=== PATIENT | male | born 1945 | race Caucasian/White ===

== ENCOUNTER 2024-04-18 06:18 | Day surgery (SDC) | payer MEDICARE, BC, SELFPAY ==
[2024-04-18 11:48] VITALS: BMI 28.9
[2024-04-18 11:49] VITALS: BP 163/92
[2024-04-18 14:00] VITALS: BP 122/64
== END 2024-04-18 14:35 | disposition home or self-care (01) ==
LOC: GI 06:18
PROVIDERS: ATTENDING PHYSICIAN Internal Medicine Gastroenterology
DX: B37.81 Candidal esophagitis (principal); K22.9 Disease of esophagus, unspecified; K31.A0 Gastric intestinal metaplasia, unspecified; K31.89 Other diseases of stomach and duodenum
CPT/HCPCS: 43239; 88305; 87220; 88342

== ENCOUNTER → 2024-12-04 12:05 | Outpatient (REF) | payer MEDICARE, BC, SELFPAY | LOC: RAD 12:05 | PROVIDERS: ATTENDING PHYSICIAN Internal Medicine Gastroenterology; FAMILY PHYSICIAN Family Medicine | DX: K59.09 Other constipation (principal) | CPT/HCPCS: 74018 ==

== ENCOUNTER → 2024-12-18 11:23 | Outpatient (REF) | payer MEDICARE, BC, SELFPAY | LOC: HWRAD 11:23 | PROVIDERS: ATTENDING PHYSICIAN Internal Medicine Gastroenterology; FAMILY PHYSICIAN Family Medicine | DX: K21.9 Gastro-esophageal reflux disease without esophagitis (principal); R14.2 Eructation | CPT/HCPCS: 76700 ==

== ENCOUNTER → 2025-01-07 09:44 | Outpatient (REF) | payer MEDICARE, BC, SELFPAY | LOC: RAD 09:44 | PROVIDERS: ATTENDING PHYSICIAN Internal Medicine Gastroenterology; FAMILY PHYSICIAN Family Medicine | DX: R14.2 Eructation (principal) | CPT/HCPCS: 78264; A9541 ==

== ENCOUNTER 2025-02-28 17:33 | Emergency (ER) | payer MEDICARE, BC, SELFPAY ==
[2025-02-28 17:34] VITALS: BMI 28.9
[2025-02-28 17:45] VITALS: BP 150/117
[2025-02-28 18:26] LABS: % Basophils 0.6 % (0-2); % Eosinophils 0.8 % (0-6); % Immature Granulocytes 0.8 % (0-0.5); % Lymphocytes 12.5 % (20.5-51.1); % Monocytes 9.9 % (1.7-9.3); % Neutrophils 75.4 % (42.2-75.2); Absolute Basophils 0.1 10^3/uL (0-0.2); Absolute Eosinophils 0.1 10^3/uL (0-0.7); Absolute Immature Granulocytes 0.1 10^3/uL (0-0.05); Absolute Lymphocytes 1.9 10^3/uL (1.2-3.4); Absolute Monocytes 1.5 10^3/uL (0.1-0.6); Absolute Neutrophils 11.7 10^3/uL (1.4-6.5); Hemoglobin 16.3 g/dL (13.0-18.0); Mean Corpuscular Hgb 27.8 pg (27.0-31.0); Mean Corpuscular Volume 81.8 fL (80.0-94.0); Mean Platelet Volume 9.7 fL (7.4-10.4); Nucleated Red Blood Cells % 0 % (-); Platelet Count 236 10^3/uL (130-400); Red Blood Cell Count 5.87 10^6/uL (4.70-6.10); Red Cell Dist. Width 20.5 % (11.5-14.5); White Blood Cell Count 15.6 10^3/uL (4.8-10.8)
[2025-02-28 18:29] LABS: ALT (SGPT) 23 U/L (0-50); AST (SGOT) 22 U/L (17-59); Albumin 4.2 g/dl (3.5-5.0); Alkaline Phosphatase 53 U/L (38-126); Blood Urea Nitrogen 19 mg/dl (9-20); Calcium 9.5 mg/dl (8.4-10.2); Carbon Dioxide 26 mmol/L (22-30); Chloride 104 mmol/L (98-107); Glucose 105 mg/dl (70-99); Potassium 4.9 mmol/L (3.5-5.1); Sodium 139 mmol/L (135-145); Total Bilirubin 0.5 mg/dl (0.2-1.3); Total Protein 6.2 g/dl (6.3-8.2); eGFR > 60.00
[2025-02-28 18:39] LABS: Urine Albumin 1+ (Neg - Trace); Urine Bilirubin Negative (Negative); Urine Character Clear (Clear); Urine Color Yellow; Urine Glucose Negative (Negative); Urine Ketone Negative (Negative); Urine Leukocyte Negative (Negative); Urine Nitrite Negative (Negative); Urine Occult Blood 4+ (Negative); Urine Urobilinogen Negative (Neg - 1+)
[2025-02-28 18:47] LABS: Urine Squamous Cell 0-2 /LPF (Few)
[2025-02-28 18:48] LABS: Urine Bacteria Few (Negative); Urine Red Blood Cell 26-30 /HPF (0-2); Urine White Cell 0-2 /HPF (0-5)
[2025-02-28 21:01] VITALS: BP 175/93
--- NOTE | 2025-02-28 21:12 | ED.GENMED ---
History of Present Illness
General
Chief Complaint: Male Genito-Urinary Symptoms
Source: patient
Exam Limitations: none
Time Seen by Provider: 02/28/25 20:42
History of Present Illness
History of Present Illness:
79yoM with a history of coronary artery disease s/p CABG, hypertension, hyperlipidemia presenting with his for evaluation of hematuria. Patient had 2 episodes of gross hematuria this afternoon. The urine was a reddish color during the first
episode. In the second episode, the urine initially was pink and then became red. He passed a clot at the end of his stream and the urine has been clear since then. He was seen in urgent care prior to arrival and UA was normal other than elevated
RBCs. He was sent here for evaluation. Patient is currently asymptomatic and denies any fevers, vomiting, flank pain, abdominal pain, dysuria, urinary retention. He had an abdominal ultrasound in December 2024 which did not reveal any renal
masses. His only blood thinner is a baby aspirin. He denies tobacco use.
Past History
Past History
ED Past Medical History: CAD, GERD and Other (Pharyngolaryngeal reflux)
ED Past Surgical History: Appendectomy, Cardiac (TCA with stent), Orthopedic (Lumbar laminectomy/fusion; carpal tunnel release right hand, knee arthroscopy) and Other (Sinus surgery)
Social History
Tobacco: Non-smoker
Personal:
Living: with family
Employment: Retired
Family History
Family History: Other (Noncontributory)
Phy Exam
General Physical Exam
General Presentation: well appearing and no apparent distress
General Skin: warm and dry
General Habitus: normal
General Mental: alert
ENT Exam
ENT Exam: normocephalic
Pulmonary Exam
Pulmonary Exam: no respiratory distress
Gastrointestinal Exam
Gastrointestinal Exam: non tender, soft and non distended
Neurological Exam
Neurological Exam: alert
[place] Coma Scale
Eye Opening: Spontaneous
Verbal Response: Oriented
Motor Response: Obeys Commands
GCS Total Score: 15
Skin Exam
Skin Exam: normal color and warm/dry
Psychiatric Exam
Psychiatric Exam: normal mood/affect
Course
Orders/Labs/Results
Orders:
Orders
02/28/25 18:00
CMP [Comprehensive Metabolic Panel] Urgent
Complete Blood Count/With Diff Urgent
02/28/25 18:02
Urinalysis Reflex To Culture Urgent
Date Specimen was Collected: 02/28/25
Time Specimen was Collected: 17:49
Urine Microscopic Reflex Cult Urgent
Abnormal Lab Results
02/28/25 02/28/25
18:00 18:02
WBC 15.6 H 10^3/uL
(4.8-10.8)
RDW 20.5 H %
(11.5-14.5)
Abs Immat Gran (auto) 0.1 H 10^3/uL
(0-0.05)
Absolute Neuts (auto) 11.7 H 10^3/uL
(1.4-6.5)
Absolute Monos (auto) 1.5 H 10^3/uL
(0.1-0.6)
Immature Gran % 0.8 H %
(0-0.5)
Neutrophils % 75.4 H %
(42.2-75.2)
Lymphocytes % 12.5 L %
(20.5-51.1)
Monocytes % 9.9 H %
(1.7-9.3)
Glucose 105 H mg/dl
(70-99)
Total Protein 6.2 L g/dl
(6.3-8.2)
Ur Occult Blood Reflex 4+ A
(Negative)
Urine RBC 26-30 A /HPF
(0-2)
Urine Bacteria (Reflex) Few A
(Negative)
Urine Albumin (Reflex) 1+ A
(Neg - Trace)
02/28/25 18:00
02/28/25 18:00
Vital Signs
Initial and Last Documented VS:
Initial Vital Signs
Temp Pulse Resp BP Pulse Ox
98.0 F 84 16 150/117 96
02/28/25 17:45 02/28/25 17:45 02/28/25 17:45 02/28/25 17:45 02/28/25 17:45
Last Documented Vital Signs
Temp Pulse Resp BP Pulse Ox
98.0 F 78 16 175/93 98
02/28/25 17:45 02/28/25 21:01 02/28/25 21:01 02/28/25 21:01 02/28/25 21:01
MDM/Problems Addressed
Differential Diagnosis Includes:
79yoM here after 2 episodes of gross hematuria today. Urine now appears clear/yellow. Otherwise asymptomatic. He is hypertensive with otherwise stable vitals. He is well appearing in no distress. Abdominal exam is benign. Differential diagnosis
includes: UTI, BPH, malignancy
UA obtained in triage which shows microscopic hematuria without evidence of infection. Recent abdominal ultrasound 2 months ago was normal. Offered repeat imaging which he declines and states he prefers to f/u with urology as an outpatient.
Discussed likely need for cystoscopy to r/o bladder mass. ED return precautions discussed. Patient and in agreement with plan and he was discharged in stable condition.
*Critical Care Note
Total Time (30-74mins, 75-104mins- exclusive of procedures): Not Applicable
ED Attending Note
-
Portions of this chart may have been created with voice recognition software.� Occasional wrong word or��sound alike� substitutions may have occurred due to the inherent limitations of voice recognition software.
Discharge Plan
Departure
Patient Disposition: Home (Routine Discharge)
Date of Disposition: 02/28/25
Time of Disposition: 21:15
Patient with high blood pressure during this ER visit?: Yes
Discharge Problem:
Hematuria
Instructions: Blood in the urine (hematuria) - ED discharge instructions
Prescriptions:
No Action
Aspirin
81 mg PO DAILY
Amlodipine
5 mg PO DAILY
Coq10
300 mg PO DAILY
Patient Comments:
Coq10 100mg at HS
Gabapentin
200 mg PO HS
Magnesium
64 mg PO DAILY
Rosuvastatin Calcium
20 mg PO DAILY
Tramadol Hcl
50 mg PO HS
Vitamin C
1,000 mg PO DAILY
losartan 50 MG tablet
50 mg PO DAILY Qty: 30 0RF
Rx Instructions:
NEW MED
famotidine 20 MG tablet
20 mg PO HS Qty: 30 0RF
montelukast 10 MG tablet
10 mg PO QPM Qty: 30 0RF
Rx Instructions:
NEW MED
budesonide-formoterol [Symbicort] 1 PUFF HFA aerosol inhaler
2 puff inhalation R BID Qty: 1 0RF
Rx Instructions:
NEW MED
Nexium
40 mg PO DAILY Qty: 30 0RF
Rx Instructions:
take 1/2 hour before breakfast
Saline Nasal 50 SPRAYS/45 ML aerosol,spray
0 sprays intranasal BID
Dupixent Pen 300 mg/2 mL Pen Injector
300 mg SC Q2W
Referrals:
Angel Mcghee MD [Active] -
Yash Philippe MD [Family Provider] -
Activity Restrictions/Additional Instructions:
Please call tomorrow to schedule a follow-up appointment with urology. Return to the ER with any new or worsening symptoms including inability to urinate or pain.
Interventions
Interventions:
*Risk Screen - Suicide Last Done: 02/28/25 17:45
*General Assessment Last Done: 02/28/25 20:50
*Neglect/Abuse Screening Last Done: 02/28/25 17:45
*ED- Fall Risk Assessment Last Done: 02/28/25 20:50
*Nursing Disposition Last Done: 02/28/25 21:19
ED-Male Genitourinary Assessment Last Done: 02/28/25 20:50
Discharge Date and Time
Discharge Date/Time: 02/28/25 21:20
Print Language: WELSH
== END 2025-02-28 21:20 | disposition home or self-care (01) ==
LOC: EMR 17:33
PROVIDERS: Emergency Medicine; EMERGENCY PHYSICIAN Emergency Medicine; FAMILY PHYSICIAN Family Medicine
DX: R31.9 Hematuria, unspecified (principal); I10 Essential (primary) hypertension; E78.00 Pure hypercholesterolemia, unspecified; I25.10 Atherosclerotic heart disease of native coronary artery without angina pectoris; K21.9 Gastro-esophageal reflux disease without esophagitis; Z90.49 Acquired absence of other specified parts of digestive tract; Z95.1 Presence of aortocoronary bypass graft; Z95.5 Presence of coronary angioplasty implant and graft
CPT/HCPCS: 99283; 80053; 81003; 81015; 85025

== ENCOUNTER → 2025-03-08 11:04 | Outpatient (REF) | payer MEDICARE, BC, SELFPAY | LOC: RAD 11:04 | PROVIDERS: ATTENDING PHYSICIAN Family Medicine | DX: R31.0 Gross hematuria (principal) | CPT/HCPCS: 74178; Q9967 ==

== ENCOUNTER 2025-08-02 22:08 | Inpatient (IN) | payer MEDICARE, BC, SELFPAY ==
[2025-08-02 17:24] LABS: AST (SGOT) 19 U/L (17-59); Albumin 3.8 g/dl (3.5-5.0); Alkaline Phosphatase 47 U/L (38-126); Blood Urea Nitrogen 18 mg/dl (9-20); Calcium 8.9 mg/dl (8.4-10.2); Carbon Dioxide 22 mmol/L (22-30); Chloride 100 mmol/L (98-107); Glucose 134 mg/dl (70-99); Potassium 5.1 mmol/L (3.5-5.1); Sodium 131 mmol/L (135-145); Total Protein 5.9 g/dl (6.3-8.2); eGFR > 60.00
[2025-08-02 17:33] LABS: ALT (SGPT) 21 U/L (0-50); Troponin I 0.049 ng/ml
--- NOTE | 2025-08-02 17:34 | ED.GENMED ---
History of Present Illness
General
Chief Complaint: Weakness
Source: patient
Exam Limitations: none
Time Seen by Provider: 08/02/25 17:33
Nursing documentation reviewed up to this point in time: agreed with
History of Present Illness
History of Present Illness:
The patient is a pleasant 80-year-old man who reports 1 to 2 days of severe generalized weakness and left lower leg skin redness. Patient denies fevers and chills. He reports he feels so weak that he had difficulty standing up and walking today.
He denies chest pain and shortness of breath. Patient denies injury to the left leg.
Past History
Past History
ED Past Medical History: CAD, GERD and Other (Pharyngolaryngeal reflux)
ED Past Surgical History: Appendectomy, Cardiac (TCA with stent), Orthopedic (Lumbar laminectomy/fusion; carpal tunnel release right hand, knee arthroscopy) and Other (Sinus surgery)
Social History
Tobacco: Non-smoker
Alcohol: Other
Drug: None
Personal:
Living: with family
Employment: Retired
Family History
Family History: Other (Noncontributory)
Review of Systems
Review of Systems
Allergies reviewed?: Yes
Other source history: family
All Other Systems: ROS reviewed and negative except as documented in HPI and ROS
Constitutional: Reports fatigue
EENT: Reports no symptoms
Respiratory: Reports no symptoms
Cardiac: Reports no symptoms
ABD/GI: Reports no symptoms
: Reports no symptoms
Musculoskeletal: Reports edema (Edema and skin redness of left lower leg)
Skin: Reports other
Neurological: Reports no symptoms
Endocrine: Reports no symptoms
Hematologic/Lymphatic: Reports no symptoms
Psychiatric: Reports no symptoms
Phy Exam
Physical Exam
Physical Exam:
Physical Exam
General: Patient appears tired but is alert and conversational
Neck: supple. no meningeal signs. Dry mucous membrane
Heart: s1/s2 regular rate and rhythm,
Lungs: no acute respiratory distress. clear bilaterally
Abdomen: normal bowel sounds. not tender. no CVAT
Neuro: alert and oriented. no focal neurological deficits
Skin: Warmth and skin erythema of left lower leg
Psychiatric: well kept. interactive and cooperative
Extremities: 1+ pitting edema in bilateral lower extremities. Negative Homans' sign
Course
Orders/Labs/Results
Orders:
Orders
08/02/25 16:38
Electrocardiogram (*1) Urgent
Reason for Study: Fatigue / Weakness
EKG- Treatment ONCE
08/02/25 16:51
Complete Blood Count/With Diff Urgent
Comprehensive Metabolic Panel Urgent
NT-proBNP Urgent
Comment: ADD ON
Troponin I Urgent
08/02/25 17:34
Urinalysis Reflex To Culture Urgent
08/02/25 18:14
CR Chest - 2 Views Urgent
Comment:
Reason For Exam: weakness
08/02/25 18:26
Add On- LAB Urgent
Tests Added?: Pro-BNP
08/02/25 18:27
Add On- LAB Urgent
Tests Added?: lymes progressive
08/02/25 18:28
US Legs, Left [US Periph Venous LOWER Ext LT] Urgent
Comment:
Reason For Exam: left leg redness
08/02/25 18:39
COVID-19 Antigen Urgent
Source: Nasal Swab
Lactic Acid Urgent
WBC with Differential Urgent
Blood Culture Q30M
ZORA Source: Blood/Venous
Specimen Description:
Blood Culture Q30M
ZORA Source: Blood/Venous
Specimen Description:
08/02/25 19:34
Piperacillin/Tazo 4.5 Gram [Zosyn] 4.5 gram in 100 ml IV NOW
Vancomycin [Vancocin] 2,000 mg 0.9% Sodium Chloride 500 ml [Nss] 500 ml IV NOW
08/02/25 20:19
Lyme Progressive Urgent
Abnormal Lab Results
08/02/25 08/02/25
16:51 18:39
WBC 40.8 H* 10^3/uL 39.5 H 10^3/uL
(4.8-10.8) (4.8-10.8)
Abs Immat Gran (auto) 0.6 H 10^3/uL 0.5 H 10^3/uL
(0-0.05) (0-0.05)
Absolute Neuts (auto) 37.0 H 10^3/uL 35.2 H 10^3/uL
(1.4-6.5) (1.4-6.5)
Absolute Lymphs (auto) 1.0 L 10^3/uL 1.1 L 10^3/uL
(1.2-3.4) (1.2-3.4)
Absolute Monos (auto) 2.1 H 10^3/uL 2.6 H 10^3/uL
(0.1-0.6) (0.1-0.6)
Immature Gran % 1.4 H % 1.3 H %
(0-0.5) (0-0.5)
Neutrophils % 90.7 H % 89.0 H %
(42.2-75.2) (42.2-75.2)
Lymphocytes % 2.4 L % 2.8 L %
(20.5-51.1) (20.5-51.1)
Sodium 131 L mmol/L
(135-145)
Glucose 134 H mg/dl
(70-99)
Lactic Acid 2.3 H mmol/L
(0.7-2.0)
Troponin I 0.049 H* ng/ml
Total Protein 5.9 L g/dl
(6.3-8.2)
08/02/25 18:39
08/02/25 16:51
Vital Signs
Initial and Last Documented VS:
Initial Vital Signs
Temp Pulse Resp Pulse Ox
98.0 F 45 16 98
08/02/25 16:32 08/02/25 16:32 08/02/25 16:32 08/02/25 16:32
Last Documented Vital Signs
Temp Pulse Resp BP Pulse Ox
98.0 F 75 16 111/67 97
08/02/25 16:32 08/02/25 20:25 08/02/25 16:32 08/02/25 18:54 08/02/25 18:54
MDM/Problems Addressed
Differential Diagnosis Includes:
Acute pneumonia, acute UTI, left lower leg cellulitis
MDM/Problems Addressed:
Patient presents with acute generalized weakness and skin redness of left lower leg
Chronic conditions affecting care: CAD
*Radiology
Radiology exam reviewed: preliminary read by ED provider (Chest x-ray read by me. No acute disease) and radiology read reviewed
*Pulse Oximetry
SaO2: 98
Oxygen Mode of Delivery: Room air
Patient hypoxic: no
Comment: Not hypoxic, 98% on room air
*EKG
Interpreted by ED Provider?: Yes
Interpretation: abnormal
Comparison EKG: changes noted
Rate: normal
Rhythm: sinus and PVC's
[place]: left axis deviation
Interval: normal interval
QRS Pattern: normal QRS
Ischemia: non-specific ST changes
*[employer] Interpretation
Rate: normal
Interpretation: normal
Rhythm: sinus
*Critical Care Note
Total Time (30-74mins, 75-104mins- exclusive of procedures): Not Applicable
Data Reviewed
Review of Other/Old Records Reveals: Labs (White blood cell count 15.6 in 2024)
Source: patient and family
Patient Management
Social determinants of health affecting care: Living situation and Strong social support
Discussion with other providers: Hospitalist
ED Attending Note
-
Portions of this chart may have been created with voice recognition software.� Occasional wrong word or��sound alike� substitutions may have occurred due to the inherent limitations of voice recognition software.
Discharge Plan
Departure
Patient Disposition: Admit
Date of Disposition: 08/02/25
Time of Disposition: 19:33
Admit to: Med/Surg
Presentation/result/management discussed w/ accepting MD/DO: Hospitalist
Patient with high blood pressure during this ER visit?: No
Condition: Good
Covid-19: Not Applicable
Discharge Problem:
Cellulitis of left leg, Acute leukocytosis
Prescriptions:
No Action
furosemide [Lasix] 40 mg Tablet
40 mg PO DAILY
aspirin 81 mg Tablet,Delayed Release (Dr/Ec)
81 mg PO HS
tramadol 50 mg Tablet
50 mg PO HS
famotidine [Pepcid] 20 mg Tablet
20 mg PO HS
ascorbic acid (vitamin C) [Vitamin C] 500 mg Tablet
500 mg PO DAILY@1200
prednisone 1 mg Tablet
4 mg PO DAILY
esomeprazole magnesium [Nexium] 40 mg Capsule,Delayed Release(Dr/Ec)
40 mg PO DAILY
montelukast [Singulair] 10 mg Tablet
10 mg PO DAILY
furosemide [Lasix] 20 mg Tablet
20 mg PO QPM
gabapentin 100 mg Capsule
200 mg PO HS
losartan 100 mg Tablet
100 mg PO DAILY
finasteride 5 mg Tablet
5 mg PO DAILY
rosuvastatin [Crestor] 20 mg Tablet
20 mg PO DAILY
budesonide-formoterol [Breyna] 160-4.5 mcg/actuation Hfa Aerosol Inhaler
2 inh INHALATION R BID
omega 1-wpt-vwr-fish oil [Fish Oil] 1,000 (120-180) mg Capsule
1 cap PO DAILY@1200
coQ10 (ubiquinol) 100 mg Capsule
100 mg PO DAILY@1200
Dupixent Syringe 300 mg/2 mL Syringe
300 mg SC Q2W
magnesium oxide 200 mg magnesium Tablet
200 mg PO DAILY
Referrals:
Yash Philippe MD [Family Provider, Family Practice]
Interventions
Interventions:
*Risk Screen - Suicide Last Done: 08/02/25 16:32
*Neglect/Abuse Screening Last Done: 08/02/25 16:32
ED- Cardiac Assessment Last Done: 08/02/25 18:45
ED- Neurological Assessment Last Done: 08/02/25 20:25
ED- Pulmonary Assessment Last Done: 08/02/25 18:45
Discharge Date and Time
Print Language: SYRIAC
[2025-08-02 17:41] LABS: Hematocrit 46.4 % (39.0-52.0); Hemoglobin 15.7 g/dL (13.0-18.0); Mean Corp Hgb Conc. 33.8 g/dL (33.0-37.0); Mean Corpuscular Volume 87.7 fL (80.0-94.0); Platelet Count 334 10^3/uL (130-400); Red Cell Dist. Width 14.3 % (11.5-14.5)
[2025-08-02 18:09] LABS: Nucleated Red Blood Cells % 0 % (-)
[2025-08-02 18:54] VITALS: BP 111/67
[2025-08-02 19:35] LABS: COVID-19 Antigen Negative (Negative)
[2025-08-02] MEDS: ZOSYN 100 IV (20:18)
[2025-08-02 20:25] VITALS: BMI 30.1
--- NOTE | 2025-08-02 20:31 | HPS.HSE ---
Family Physician
-
Family Physician: Yash Philippe
Chief Complaint
-
weakness
History of Present Illness
This is a 80-year-old with past medical history significant for hypertension, asthma, sleep apnea, GERD, PMR, CHF with preserved EF, BPH presenting to the emergency department with worsening weakness fatigue over the last 3 days.
Patient apparently had a history of chronic lower extremity swelling on chronic diuretics as well as mechanical compression devices will recently had increased swelling and weeping on his lower extremities. After extensive swelling and weeping he
developed redness and he was started on increased dose of Lasix from 40 mg daily to 80 mg. Patient took 80 mg for about 3 days and had significant increase in weight loss down about 8 pounds with decrease in the swelling. The weeping is resolved.
Daughter reports that his swelling is under at times better than prior. However starting about 4 days ago started having increasing fatigue and weakness. Reported chills but denies any fevers. He denies any pain in his lower extremities. Denies
tenderness. He was brought to the emergency department today because he was slightly altered with increased somnolence and weakness. Decreased p.o. intake. Denied any urinary symptoms. Denies having any chest pain.
He was seen by his [place] physician today who was concerned as patient was noted to be bradycardic and hypotensive there. He had a temp of 97. Did not noticed left dependent edema with tense bullae and concerning for left leg cellulitis. It did
give him a prescription for Keflex and he was sent to the emergency department. He was advised to hold his diuretics as well as his losartan. Patient is not on a beta-blockade.
In the emergency department his temperature was 98 �C, blood pressure 116/60 with a pulse of 75 and was satting 97% on room air. ECG shows normal sinus rhythm with PVCs. Initial troponin was 0.049. Chest x-ray shows no acute infiltrates.
Ultrasound is negative for DVT.
He has a white count of 39.5 hemoglobin 15.7 platelet count of 334. His sodium was 131 otherwise potassium 5.1 BUN/creatinine were stable at 18 and 1.2 with a glucose of 134. Lactic acid was elevated at 2.3. BNP was also elevated 2900.
Medical History
Past Medical History
Past Medical History: Reports Asthma, CHF (Preserved EF), GERD, HTN, Hypercholesterolemia and Other (Sleep apnea, PMR, BPH)
Past Surgical History: Reports Orthopedic (Laminectomy, status post cardiac cath, spinal fusion L4-L5)
Social History
Tobacco: Non-smoker
Alcohol: None
Drug: None
Family History
Family History: Not pertinent
Allergies / Home Medications
Allergies reflects when Allergies were last updated in [facility].
Home Medications with original date entered in [facility]
Allergy/Medication List:
Allergies
Allergy/AdvReac Type Severity Reaction Status Date / Time
moxifloxacin Allergy Unknown Verified 08/02/25 16:38
oxycodone (From Percocet) AdvReac Unknown Verified 08/02/25 16:38
Home Medications
ascorbic acid (vitamin C) 500 mg tablet (Vitamin C) 500 mg PO DAILY@1200 08/02/25
aspirin 81 mg tablet,delayed release 81 mg PO HS 08/02/25
budesonide-formoterol HFA 160 mcg-4.5 mcg/actuation aerosol inhaler (Breyna) 2 inh inhalation R BID 08/02/25
coQ10 (ubiquinol) 100 mg capsule 100 mg PO DAILY@1200 08/02/25
dupilumab 300 mg/2 mL subcutaneous syringe (Dupixent) 300 mg SC Q2W 08/02/25
esomeprazole magnesium 40 mg capsule,delayed release (Nexium) 40 mg PO DAILY 08/02/25
famotidine 20 mg tablet (Pepcid) 20 mg PO HS 08/02/25
finasteride 5 mg tablet 5 mg PO DAILY 08/02/25
furosemide 20 mg tablet (Lasix) 20 mg PO QPM 08/02/25
furosemide 40 mg tablet (Lasix) 40 mg PO DAILY 08/02/25
gabapentin 100 mg capsule 200 mg PO HS 08/02/25
losartan 100 mg tablet 100 mg PO DAILY 08/02/25
magnesium oxide 200 mg PO DAILY 08/02/25
montelukast 10 mg tablet (Singulair) 10 mg PO DAILY 08/02/25
omega 9-yok-mll-fish oil 1,000 mg (120 mg-180 mg) capsule (Fish Oil) 1 cap PO DAILY@1200 08/02/25
prednisone 1 mg tablet 4 mg PO DAILY 08/02/25
rosuvastatin 20 mg tablet (Crestor) 20 mg PO DAILY 08/02/25
tramadol 50 mg tablet 50 mg PO HS 08/02/25
Review of Systems
-
History Source: Patient and Family
Constitutional: Reports Fatigue
EENT: Reports No Symptoms
Respiratory: Reports No Symptoms
Cardiac: Reports No Symptoms
Abdomen/GI: Reports No Symptoms
: Reports No Symptoms
Musculoskeletal: Reports Joint Swelling and Edema
Skin: Reports Rash
Neurological: Reports No Symptoms
Endocrine: Reports No Symptoms
Hematologic/Lymphatic: Reports No Symptoms
Psych: Reports No Symptoms
Physical Exam
Vital Signs
Vital Signs
Temp Pulse Resp BP Pulse Ox
98.0 F 75 16 111/67 97
08/02/25 16:32 08/02/25 20:25 08/02/25 16:32 08/02/25 18:54 08/02/25 18:54
Physical Exam
General: Well Developed, Well Nourished and No Apparent Distress
HEENT: NormoCephalic, Moist mucous membranes and Atraumatic
Respiratory: Clear
Cardiac: S1/S2 and Regular Rhythm; No Murmur or Rub
GI: Soft, Non Tender, Non Distended and Normal Bowel Sounds; No Organomegaly
Rectal: Deferred by Provider
Musculoskeletal: No Clubbing, No Cyanosis, Edema, Left Lower Extremity (Trace to 1+) and No Edema; No Edema, Right Upper Extremity
Skin: Rash (Left lower extremity erythema from the knee to the ankle. There is some minimal induration and no tenderness to palpation. No obvious fluid collection.)
Neuro: AO x 3 and Nonfocal/grossly intact
Laboratory Results
-
08/02/25 18:39
08/02/25 16:51
Laboratory Results
Lactic Acid 2.3 mmol/L (0.7-2.0) H 08/02/25 18:39
Total Bilirubin 1.2 mg/dl (0.2-1.3) 08/02/25 16:51
AST 19 U/L (17-59) 08/02/25 16:51
ALT 21 U/L (0-50) 08/02/25 16:51
Alkaline Phosphatase 47 U/L (38-126) 08/02/25 16:51
Troponin I 0.049 ng/ml H* 08/02/25 16:51
Data Reviewed
-
Ultrasound: Report Reviewed by me
Lab Data: Labs Reviewed by me
Old Records: Reviewed
Impression/Plan
-
IMPRESSION:
80-year-old with multiple comorbidities presenting with weakness fatigue and erythema to the left lower extremity. Afebrile here but found to have severe leukocytosis and he was hypotensive at his PMDs clinic. Suspect cellulitis secondary to his
stasis dermatitis in the setting of recent swelling and weeping likely causing some skin breakdown. He is currently based on his vital signs does not meet sepsis criteria.
PLAN:
Cellulitis -although the rash itself was more consistent with dermatitis rather than cellulitis given the presentation with weakness fatigue and worsening symptoms despite diuretics as well as low blood pressure in the doctor's clinic and the
leukocytosis we will treat for cellulitis at this time
-Admit to telemetry
-Blood cultures
-IV Zosyn was given, will treat with cefepime/vanc pending cultures
-MRSA swab
-Keep leg elevated
-Hold diuretics for now (holding metolazone and Lasix)
Asthma -no signs of acute exacerbation, chest x-ray is clear
- Continue his home inhalers
CRISTINO
- biPAP 09/13
Arthritis -suspected PMR patient is on chronic prednisone taper currently 4 mg
- Continue prednisone 4 mg, monitor BP and start stress dose steroids if patient becomes hypotensive
Troponin elevation -suspect NIMI due to sepsis, no prior history of stenting or CABG
- Telemetry, repeat ECG with troponin trends
- Echo in /tuesday
- Cardiology consultation
- Continue aspirin and statin for now
CHF - BNP 2800. Echo 06/30 with EF 65-70%, no diastolic dysfunction noted
- repeat echo as above
- due to sepsis, holding diuretics
- check orthostatics
- continue losartan with hold parameters
DVT prophylaxis�Lovenox subcu
CODE STATUS�full code
[2025-08-02] MEDS: VANCOCIN 540 MG IV (21:31)
[2025-08-02 23:15] VITALS: BP 150/49; BMI 29.2
--- NOTE | 2025-08-02 23:17 | PHA.VAN.IN ---
Assessment
- Assessment
Renal Function: SCR Appears Elevated from baseline
Concomitant Antimicrobials: cefepime 2 g IV Q8H
Plan
- Plan
Initial / Loading Dose: 2000 mg x 1
Maintenance Regimen: pharmacy to dose by level
Monitoring: random level ordered for 08/03
Pharmacokinetics Vancomycin I
- -
Patient Age: 80
Patient Sex: Male
Vancomycin Day #: 1
Indication: Skin And Soft Tissue
Requesting Provider: Maggi Clements
Pertinent Antimicrobial Allergies:
moxifloxacin
Height / Weight:
Height 5 ft 11 in
Actual Weight 97.8 kg
- Vital Signs / Lab Results
Temp Pulse Resp BP Pulse Ox
98.0 F 75 16 111/67 97
08/02/25 16:32 08/02/25 20:25 08/02/25 16:32 08/02/25 18:54 08/02/25 18:54
Lab Results - Hematology
08/02/25 08/02/25
16:51 18:39
WBC 40.8 H* 39.5 H
Lab Results - Chemistry
08/02/25
16:51
BUN 18
Creatinine 1.2
Albumin 3.8
08/02/25
18:39
Lactic Acid 2.3 H
[2025-08-02] MEDS: ASPIR LOW (ENTERIC COATED) 81 MG PO (23:26)
[2025-08-02] MEDS: ULTRAM 50 MG PO (23:29)
[2025-08-02] MEDS: NEURONTIN 200 MG PO (23:29)
[2025-08-02] MEDS: NSS 500 IV (23:36)
[2025-08-02] MEDS: PEPCID 20 MG PO (23:37)
--- NOTE | 2025-08-02 23:54 | PTCARENOTE ---
Patient was ordered a 500 ml bolus to run over 30 minutes at 1000ml/hour. Patient and his daughter denies a history congestive heart failure. Patient is oriented x4. RN confirmed with RN FACULTY if it was okay to give bolus. Bolus will run as ordered per
provider.
[2025-08-03] VITALS (8 sets, daily range): BP systolic 114–163; BP diastolic 47–82; PULSE 2–80; BMI 29.2
[2025-08-03] MEDS: STERILE WATER FOR INJECTION 10 ML IV ×3 (00:37→16:13)
[2025-08-03] MEDS: MAXIPIME 2000 MG IV ×3 (00:37→16:13)
[2025-08-03 00:49] LABS: Troponin I 0.047 ng/ml
[2025-08-03] MEDS: SYMBICORT 160/4.5 MCG INHALER 2 PUFF INH ×2 (08:19→18:29)
[2025-08-03 08:53] LABS: Hematocrit 44.8 % (39.0-52.0); Hemoglobin 14.8 g/dL (13.0-18.0); Mean Corp Hgb Conc. 33.0 g/dL (33.0-37.0); Mean Corpuscular Volume 87.7 fL (80.0-94.0); Platelet Count 259 10^3/uL (130-400); Red Cell Dist. Width 14.5 % (11.5-14.5)
[2025-08-03] MEDS: MAGNESIUM OXIDE 200 MG PO (09:39)
[2025-08-03] MEDS: DELTASONE 4 MG PO (09:39)
[2025-08-03] MEDS: PROTONIX 40 MG PO (09:40)
[2025-08-03] MEDS: PROSCAR 5 MG PO (09:40)
[2025-08-03] MEDS: SINGULAIR 10 MG PO (09:40)
--- NOTE | 2025-08-03 09:40 | CON.CAR ---
Addendum entered and electronically signed by Heraclio Day MD 08/03/25 13:37:
I saw and evaluated the patient, and I provided the substantive portion of the medical decision making.
I reviewed and agree with the note by FIORDALIZA and it accurately reflects our care.
I personally performed the medical decision making of the this encounter and my assessment and plan is below:
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
here for evaluation of severe fatigue and LLE redness (with some weeping as well). He is being treated for lower extremity cellulitis. Cardiology is consulted due to abnormal troponin, elevated proBNP, and concern for CHF. Patient and his
daughter tell me that his PCP manages Lasix. He adamantly denies history of CHF; says he asks his customer care professional every time he sees them and they always say no. Recently he had worsening lower extremity edema and his PCP increased Lasix from 20 up
to 80 mg daily. Lower extremity edema improved but he was very dehydrated so he completely stopped the Lasix a few days prior to coming into the hospital. He denies chest pain or shortness of breath but does endorse lower extremity edema.
Physical exam: RRR, no murmurs, clear lungs, trace lower extremity edema, erythema of left lower extremity with mass in his left lower thigh behind the knee
Labs notable for WBC 40 on admission, lactate 2.3, creatinine 1.2, sodium 131, troponin 0.049 -> 0.047, proBNP 2930
I personally reviewed his chest x-ray which does not look consistent with pulmonary edema.
Elevated troponin: Peak at 0.049 which is likely normal for age but may have some nonischemic myocardial injury in the setting of infection. No concern for ACS. Okay to stop trending.
HFpEF, suspect acute on chronic: He denies a history of heart failure but I suspect he has some HFpEF given age and comorbidities. On outpatient Lasix which he had stopped recently due to dehydration. Would continue to hold Lasix while we treat
his infection and resume 40 mg p.o. daily on discharge. If he is still here on Tuesday we will update an echocardiogram.
Cellulitis: Antibiotics per primary team. He also has an area of swelling behind his left knee at prior surgical site. Recommend ultrasound.
Cardiology will sign off at this time. If his echocardiogram on Tuesday is abnormal, we will see him again. Otherwise recommendations as above.
Original Note:
Consultation
Consultation Request
Date/Time Consultation Requested: 08/03/25609
Date/Time Consultation Performed: 08/03/25951
Requesting Provider: Dr. Aparicio
Performing Provider: Jessica MANCERA for Dr. Day
Reason for Consultation: abnormal troponin, hx CHF
Medical History
-
Chief Complaint: severe fatigue, and LLE redness
History of Present Illness:
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
here for evaluation of severe fatigue and LLE redness (with some weeping as well). Leukocytosis noted. Lactic acid is elevated. No fever. He is being treated with IV antibiotics. Blood cultures are pending. We are consulted for abnormal troponin, as
well as elevated proBNP with hx CHF. He denies any SOB or CP. EKG shows SR with PVC's. He denies any hx CHF, but reports he has been on lasix for LE edema, and that recently it was increased for worsening LE edema- was on 20 mg, increased to 40 mg,
then on 80 mg course, which helped his edema.
Past Medical History
Past Medical History: Arrhythmias, CAD, CHF, GERD, HTN and Other (as above)
Social History
Tobacco: Non-Smoker
Personal:
Living: With Family
Family History
Family History: Early CAD and CAD
Allergies / Home Medications
Allergy/AdvReac Type Severity Reaction Status Date / Time
moxifloxacin Allergy Unknown Verified 08/02/25 16:38
oxycodone (From Percocet) AdvReac Unknown Verified 08/02/25 16:38
�Medication �Instructions �Recorded �Confirmed �Type
ascorbic acid (vitamin C) 500 mg 500 mg PO DAILY@1200 08/02/25 08/02/25 History
tablet (Vitamin C)
aspirin 81 mg tablet,delayed 81 mg PO HS 08/02/25 08/02/25 History
release
budesonide-formoterol HFA 160 2 inh inhalation R BID 08/02/25 08/02/25 History
mcg-4.5 mcg/actuation aerosol
inhaler (Breyna)
coQ10 (ubiquinol) 100 mg capsule 100 mg PO DAILY@1200 08/02/25 08/02/25 History
dupilumab 300 mg/2 mL subcutaneous 300 mg SC Q2W 08/02/25 08/02/25 History
syringe (Dupixent)
esomeprazole magnesium 40 mg 40 mg PO DAILY 08/02/25 08/02/25 History
capsule,delayed release (Nexium)
famotidine 20 mg tablet (Pepcid) 20 mg PO HS 08/02/25 08/02/25 History
finasteride 5 mg tablet 5 mg PO DAILY 08/02/25 08/02/25 History
furosemide 20 mg tablet (Lasix) 20 mg PO QPM 08/02/25 08/02/25 History
furosemide 40 mg tablet (Lasix) 40 mg PO DAILY 08/02/25 08/02/25 History
gabapentin 100 mg capsule 200 mg PO HS 08/02/25 08/02/25 History
losartan 100 mg tablet 100 mg PO DAILY 08/02/25 08/02/25 History
magnesium oxide 200 mg PO DAILY 08/02/25 08/02/25 History
montelukast 10 mg tablet 10 mg PO DAILY 08/02/25 08/02/25 History
(Singulair)
omega 1-doj-ugm-fish oil 1,000 mg 1 cap PO DAILY@1200 08/02/25 08/02/25 History
(120 mg-180 mg) capsule (Fish Oil)
prednisone 1 mg tablet 4 mg PO DAILY 08/02/25 08/02/25 History
rosuvastatin 20 mg tablet (Crestor) 20 mg PO DAILY 08/02/25 08/02/25 History
tramadol 50 mg tablet 50 mg PO HS 08/02/25 08/02/25 History
Review of Systems
-
History Source: Patient
All other systems: Negative unless noted
Constitutional: Fatigue
Musculoskeletal: Edema
Skin: Other (LLE redness and weeping)
Physical Exam
Vital Signs
Temp Pulse Resp BP Pulse Ox
98.6 F 71 18 130/62 99
08/03/25 07:02 08/03/25 07:02 08/03/25 07:02 08/03/25 07:02 08/03/25 07:02
Lab Results
08/03/25 06:46
Troponin I Cancelled 08/03/25 04:50
Oqz-T-Cpnzysjirsk Pept 2930 pg/ml 08/02/25 16:51
Physical Exam
General: Well Developed, Well Nourished and No Apparent Distress
HEENT: Normocephalic and Anicteric
Respiratory: Clear and Non Labored Respirations
Cardiac: Regular Rhythm
Musculoskeletal: Edema (BLE edema, mild L > R)
Skin: Warm, Dry and Other (redness LLE)
Neuro: AO x 3
Psych: Calm
Impression / Plan
-
Cellulitis:
-on IV abx
-blood cx pending
-management per primary team
Abnormal troponin:
-suspect acute, non-ischemic myocardial injury in setting of acute infectious process
-was 0.049, then trended down, so will cancel further trops
Abnormal proBNP:
-patient reports he is on lasix as OP for LE edema and has not been diagnosed with CHF
-he has LE edema, but clear lungs. Would resume his usual PO lasix dosing when okay from infectious standpoint.
-will obtain echo Tuesday
CAD with hx multiple stents and CABG:
-stable without CP
-continue ASA and statin
Data Reviewed
-
EKG: Tracing Personally Visualized and interpreted (SR with PVC's)
Radiology: Report Reviewed by me (CXR: No acute cardiopulmonary process.)
Ultrasound: Report Reviewed by me (No sonographic evidence for left lower extremity deep venous thrombosis.)
Medical Tests (Nuc Med, Echo etc): Report Reviewed by me (Echo 01/18/22: Normal biventricular size and systolic function without regional wall motion abnormality. Estimated LVEF 55%. Mild concentric left ventricular hypertrophy. No significant
valve disease. Normal PASP.)
Labs: Labs Reviewed by me
[2025-08-03 09:41] LABS: Troponin I 0.032 ng/ml
[2025-08-03] MEDS: CRESTOR 20 MG PO (09:45)
[2025-08-03 09:53] LABS: Blood Urea Nitrogen 22 mg/dl (9-20); Calcium 8.5 mg/dl (8.4-10.2); Carbon Dioxide 24 mmol/L (22-30); Chloride 100 mmol/L (98-107); Estimated Creatinine Clearance 52 ml/min; Glucose 69 mg/dl (70-99); Magnesium 2.3 mg/dl (1.6-2.3); Potassium 5.0 mmol/L (3.5-5.1); Sodium 132 mmol/L (135-145); eGFR > 60.00
--- NOTE | 2025-08-03 10:02 | PHA.VAN.FU ---
Vancomycin Assessment / Plan
- Assessment
Renal Function: Stable
WBC's are: Trending Down
In the past 24 hrs, patient has been: Afebrile
Concomitant Antimicrobials: CEFEPIME
- Assessment - Therapeutic Drug Monitoring
Random Level: 13.8 DRAWN ~9H AFTER PREVIOUS DOSE VANCO 2000MG
- Dosing Plan
Dosing by Level: Re-dose today (VANCO 1250MG X1)
- Monitoring Plan
Random Level: 08/04 @0600
- Follow Up
Pharmacy will continue to follow.
Vancomycin Follow UP
- -
Patient Age: 80
Patient Sex: Male
Vancomycin Day #: 2
Indication: Skin And Soft Tissue
Requesting Provider: Maggi Clements
Pertinent Antimicrobial Allergies:
moxifloxacin
Height / Weight:
Height 5 ft 11 in
Actual Weight 94.971 kg
- Vital Signs / Lab Results
Temp Pulse Resp BP Pulse Ox
98.6 F 71 18 130/62 99
08/03/25 07:02 08/03/25 07:02 08/03/25 07:02 08/03/25 07:02 08/03/25 07:02
Lab Results - Hematology
08/02/25 08/02/25 08/03/25
16:51 18:39 06:46
WBC 40.8 H* 39.5 H 27.2 H
Lab Results - Chemistry
08/02/25 08/03/25
16:51 06:46
BUN 18 22 H
Creatinine 1.2 1.2
Estimated Creat Clear 52
Albumin 3.8
08/02/25
18:39
Lactic Acid 2.3 H
Therapeutic Drug Monitoring
Random Vancomycin 13.8 ug/ml 08/03/25 06:46
[2025-08-03] MEDS: COZAAR PO (10:57)
[2025-08-03] MEDS: VANCOCIN 275 MG IV (11:03)
--- NOTE | 2025-08-03 11:20 | CM ---
Met with patient and his daughter at the bedside
Pharmacy verified: [facility] @ [address] [place] [address]
Lives w/ ; multilevel home; 2 steps to enter; 13 steps between floors; railings present; half bath 1st floor; 2nd floor bath has stall shower
PLOF: independent with ADLs; uses walking stick w/ ambulation PRN; drives; caregiver for
DME: use [facility] @ night
No SNF utilization history; Home Health w/ [facility] 2014 and 2017
If home health/VN if HH is recommended, agreeable to VNA
Daughter will transport home
Plan: Discharge to home when medically stable; may need home health/VN
--- NOTE | 2025-08-03 12:40 | W.PN.HOSP.TC ---
Today's Communication/Plan
-
Monitor vitals
See plan
Continue with antibiotic
Monitor leukocytosis
Tuesday
Assessment / Plan
Assessment / Plan
General: Well Developed, Well Nourished and No Apparent Distress
HEENT: NormoCephalic, Moist mucous membranes and Atraumatic
Respiratory: Clear
Cardiac: S1/S2 and Regular Rhythm; No Murmur or Rub
GI: Soft, Non Tender, Non Distended and Normal Bowel Sounds; No Organomegaly
Rectal: Deferred by Provider
Musculoskeletal: Edema, Left Lower Extremity (Trace to 1+) and No Edema; No Edema, Right Upper Extremity
Skin: Rash (Left lower extremity erythema from the knee to the ankle. There is some minimal induration and no tenderness to palpation. No obvious fluid collection.)
Neuro: AO x 3 and Nonfocal/grossly intact
LLE cellulitis
-Blood cultures pending
Venous ultrasound negative for DVT
-cw cefepime/vanc pending cultures
-MRSA swab
-Hold diuretics for now (holding metolazone and Lasix)
Monitor leukocytosis, per patient his white count has always been higher
Asthma -no signs of acute exacerbation, chest x-ray is clear
- Continue his home inhalers
Hyponatremia
monitor
CRISTINO
- biPAP 09/13
Arthritis -suspected PMR patient is on chronic prednisone taper currently 4 mg
- Continue prednisone 4 mg, monitor BP and start stress dose steroids if patient becomes hypotensive
Troponin elevation -suspect NIMI due to sepsis, no prior history of stenting or CABG
Monitor on telemetry
Tuesday
Cardiology following
- Continue aspirin and statin for now
Elevated proBNP
No prior history of CHF
Cardiology following
Tuesday
CAD with history of multiple stents and CABG
Monitor
Continue aspirin and statin neck
DVT prophylaxis�Lovenox subcu
CODE STATUS�full code
Anticipated Discharge: > 48 hours
Subjective/Interval History
-
Date of Service: August 03, 2025
Denies pain
Objective Data
-
Labs:
Laboratory Results
08/03/25
06:46
WBC 27.2 H
Hgb 14.8
Hct 44.8
Plt Count 259 D
Sodium 132 L
Potassium 5.0
Chloride 100
Carbon Dioxide 24
BUN 22 H
Creatinine 1.2
Glucose 69 L
Calcium 8.5
Vital Signs:
Vital Signs
Temp Pulse Resp BP Pulse Ox
97.9 F 72 16 116/57 95
08/03/25 11:23 08/03/25 11:23 08/03/25 11:23 08/03/25 11:23 08/03/25 11:23
I&O
08/02/25 08/03/25 08/04/25
06:59 06:59 06:59
Intake Total 620 / 620
Balance 620 / 620
[2025-08-03] MEDS: LOVENOX 40 MG SC (17:51)
[2025-08-03] MEDS: PEPCID 20 MG PO (20:35)
[2025-08-03] MEDS: ASPIR LOW (ENTERIC COATED) 81 MG PO (20:35)
[2025-08-03] MEDS: NEURONTIN 200 MG PO (20:35)
[2025-08-03] MEDS: ULTRAM 50 MG PO (20:38)
[2025-08-04] VITALS (7 sets, daily range): BP systolic 126–156; BP diastolic 66–90; PULSE 2; BMI 29.2
[2025-08-04] MEDS: MAXIPIME 2000 MG IV ×2 (00:20→07:48)
[2025-08-04] MEDS: STERILE WATER FOR INJECTION 10 ML IV ×2 (00:20→07:48)
[2025-08-04] MEDS: SYMBICORT 160/4.5 MCG INHALER 2 PUFF INH ×2 (07:41→20:30)
[2025-08-04] MEDS: MAGNESIUM OXIDE 200 MG PO (07:48)
[2025-08-04] MEDS: COZAAR PO (07:49)
[2025-08-04] MEDS: PROTONIX 40 MG PO (07:49)
[2025-08-04] MEDS: SINGULAIR 10 MG PO (07:49)
[2025-08-04] MEDS: DELTASONE 4 MG PO (07:49)
[2025-08-04] MEDS: PROSCAR 5 MG PO (07:49)
[2025-08-04] MEDS: CRESTOR 20 MG PO (07:49)
[2025-08-04 09:16] LABS: ALT (SGPT) 15 U/L (0-50); AST (SGOT) 16 U/L (17-59); Albumin 3.4 g/dl (3.5-5.0); Alkaline Phosphatase 70 U/L (38-126); Blood Urea Nitrogen 20 mg/dl (9-20); Calcium 8.8 mg/dl (8.4-10.2); Carbon Dioxide 23 mmol/L (22-30); Chloride 106 mmol/L (98-107); Estimated Creatinine Clearance 63 ml/min; Glucose 97 mg/dl (70-99); Potassium 5.3 mmol/L (3.5-5.1); Sodium 136 mmol/L (135-145); Total Protein 5.7 g/dl (6.3-8.2); eGFR > 60.00
[2025-08-04 09:43] LABS: Hematocrit 46.0 % (39.0-52.0); Hemoglobin 15.1 g/dL (13.0-18.0); Mean Corp Hgb Conc. 32.8 g/dL (33.0-37.0); Mean Corpuscular Volume 88.3 fL (80.0-94.0); Nucleated Red Blood Cells % 0 % (-); Platelet Count 277 10^3/uL (130-400); Red Cell Dist. Width 14.6 % (11.5-14.5)
--- NOTE | 2025-08-04 09:55 | PHA.VAN.FU ---
Vancomycin Assessment / Plan
- Assessment
Renal Function: SCR Decreasing
WBC's are: Trending Down
In the past 24 hrs, patient has been: Afebrile
Concomitant Antimicrobials: CEFEPIME
- Assessment - Therapeutic Drug Monitoring
Random Level: 10.2 DRAWN ~19 HR AFTER PREVIOUS DOSE VANCO 1250MG
- Dosing Plan
Dosing by Level: Re-dose today (VANCO 1500MG)
Dosing Comments: LINEAR KINETICS PREDICTS TROUGH 12
- Monitoring Plan
Random Level: 08/05 @0600
- Follow Up
Pharmacy will continue to follow.
Vancomycin Follow UP
- -
Patient Age: 80
Patient Sex: Male
Vancomycin Day #: 3
Indication: Skin And Soft Tissue
Requesting Provider: Maggi Clements
Pertinent Antimicrobial Allergies:
moxifloxacin
Height / Weight:
Height 5 ft 11 in
Actual Weight 94.943 kg
- Vital Signs / Lab Results
Temp Pulse Resp BP Pulse Ox
98.7 F 73 20 126/83 97
08/04/25 08:23 08/04/25 08:23 08/04/25 08:23 08/04/25 08:23 08/04/25 08:23
Lab Results - Hematology
08/02/25 08/02/25 08/03/25
16:51 18:39 06:46
WBC 40.8 H* 39.5 H 27.2 H
08/04/25
06:32
WBC 19.9 H
Lab Results - Chemistry
08/02/25 08/03/25 08/04/25
16:51 06:46 06:32
BUN 18 22 H 20
Creatinine 1.2 1.2 1.0
Estimated Creat Clear 52 63
Albumin 3.8 3.4 L
08/02/25 08/03/25 08/03/25
18:39 09:31 19:56
Lactic Acid 2.3 H 2.3 H 1.7
Microbiology Results
08/02/25 23:18 MRSA Screen - Final
Nose Staph aureus MRSA
08/02/25 18:39 Blood Culture - Preliminary
Blood/Venous No Growth in 24 hours- Final report to follow
08/02/25 18:39 Blood Culture - Preliminary
Blood/Venous No Growth in 24 hours- Final report to follow
Therapeutic Drug Monitoring
Random Vancomycin 10.2 ug/ml 08/04/25 06:32
[2025-08-04] MEDS: VANCOCIN 530 MG IV (10:24)
--- NOTE | 2025-08-04 12:26 | W.PN.HOSP.TC ---
Today's Communication/Plan
-
Monitor vital signs see plan
DC cefepime, continue with vancomycin
If symptoms do not improve then consider ID evaluation
Dose of Lokelma, monitor potassium
Monitor leukocytosis
Assessment / Plan
Assessment / Plan
General: Well Developed, Well Nourished and No Apparent Distress
HEENT: NormoCephalic, Moist mucous membranes and Atraumatic
Respiratory: Clear
Cardiac: S1/S2 and Regular Rhythm; No Murmur or Rub
GI: Soft, Non Tender, Non Distended and Normal Bowel Sounds
Musculoskeletal: Edema, Left Lower Extremity (Trace to 1+) and No Edema; No Edema, Right Upper Extremity
Skin: Rash (Left lower extremity erythema from the knee to the ankle. There is some minimal induration and no tenderness to palpation. No obvious fluid collection.)
Neuro: AO x 3 and Nonfocal/grossly intact
LLE cellulitis
-Blood cultures NGTD
Venous ultrasound negative for DVT, simple appearing cyst in the medial aspect of distal thigh. Per patient he has gotten previous surgery in the past. Symptoms do not improve then consider aspiration or dedicated ultrasound
dc cefepime. cw vancomycin
-MRSA swab +
If symptoms do not improve then consider consult infectious disease
-holding metolazone; restart morning Lasix. Continue to hold p.m. dose and monitor clinically
Monitor leukocytosis, per patient his white count has always been higher, however they now improving
Asthma -no signs of acute exacerbation, chest x-ray is clear
- Continue his home inhalers
Mild hyperkalemia
Dose of Lokelma
Monitor
Hyponatremia
Resolved
CRISTINO
- biPAP 09/13
Arthritis -suspected PMR patient is on chronic prednisone taper currently 4 mg
- Continue prednisone 4 mg, monitor BP and start stress dose steroids if patient becomes hypotensive
Troponin elevation -suspect NIMI due to sepsis, no prior history of stenting or CABG
Monitor on telemetry
Echo Tuesday
Cardiology following
- Continue aspirin and statin for now
Elevated proBNP
No prior history of CHF
Cardiology following
Echo Tuesday
CAD with history of multiple stents and CABG
Monitor
Continue aspirin and statin neck
DVT prophylaxis�Lovenox subcu
CODE STATUS�full code
Anticipated Discharge: 24 - 48 hours
Subjective/Interval History
-
Date of Service: August 04, 2025
Denies pain
Objective Data
-
Labs:
Laboratory Results
08/04/25
06:32
WBC 19.9 H
Hgb 15.1
Hct 46.0
Plt Count 277
Sodium 136
Potassium 5.3 H
Chloride 106
Carbon Dioxide 23
BUN 20
Creatinine 1.0
Glucose 97
Calcium 8.8
Total Bilirubin 0.8
AST 16 L
ALT 15
Alkaline Phosphatase 70
Vital Signs:
Vital Signs
Temp Pulse Resp BP Pulse Ox
98.4 F 77 16 147/66 99
08/04/25 11:33 08/04/25 11:33 08/04/25 11:33 08/04/25 11:33 08/04/25 11:33
I&O
08/03/25 08/04/25 08/05/25
06:59 06:59 06:59
Intake Total 620 / 620 1628 / 1628
Balance 620 / 620 1628 / 1628
[2025-08-04] MEDS: LASIX 40 MG PO (13:05)
[2025-08-04] MEDS: LOKELMA 5 GRAM PO (13:05)
[2025-08-04] MEDS: LOVENOX 40 MG SC (17:14)
[2025-08-04] MEDS: NEURONTIN 200 MG PO (21:04)
[2025-08-04] MEDS: PEPCID 20 MG PO (21:04)
[2025-08-04] MEDS: ULTRAM 50 MG PO (21:04)
[2025-08-04] MEDS: ASPIR LOW (ENTERIC COATED) 81 MG PO (21:04)
[2025-08-05 03:04] VITALS: BP 140/73
[2025-08-05 07:00] VITALS: BP 147/85
[2025-08-05] MEDS: SYMBICORT 160/4.5 MCG INHALER 2 PUFF INH ×2 (07:09→19:23)
[2025-08-05] MEDS: COZAAR 100 MG PO (07:20)
[2025-08-05] MEDS: LASIX 40 MG PO (07:20)
[2025-08-05] MEDS: MAGNESIUM OXIDE 200 MG PO (07:20)
[2025-08-05] MEDS: DELTASONE 4 MG PO (07:20)
[2025-08-05] MEDS: PROTONIX 40 MG PO (07:21)
[2025-08-05] MEDS: CRESTOR 20 MG PO (07:21)
[2025-08-05] MEDS: PROSCAR 5 MG PO (07:21)
[2025-08-05] MEDS: SENOKOT-S 1 TABLET PO (07:21)
[2025-08-05] MEDS: SINGULAIR 10 MG PO (07:21)
[2025-08-05 07:43] LABS: Hematocrit 44.3 % (39.0-52.0); Hemoglobin 15.2 g/dL (13.0-18.0); Mean Corp Hgb Conc. 34.3 g/dL (33.0-37.0); Mean Corpuscular Volume 86.2 fL (80.0-94.0); Nucleated Red Blood Cells % 0 % (-); Platelet Count 245 10^3/uL (130-400); Red Cell Dist. Width 14.1 % (11.5-14.5)
[2025-08-05 08:12] LABS: ALT (SGPT) 18 U/L (0-50); AST (SGOT) 20 U/L (17-59); Albumin 3.3 g/dl (3.5-5.0); Alkaline Phosphatase 52 U/L (38-126); Blood Urea Nitrogen 17 mg/dl (9-20); Calcium 8.5 mg/dl (8.4-10.2); Carbon Dioxide 21 mmol/L (22-30); Chloride 107 mmol/L (98-107); Estimated Creatinine Clearance 70 ml/min; Glucose 91 mg/dl (70-99); Potassium 4.7 mmol/L (3.5-5.1); Sodium 136 mmol/L (135-145); Total Protein 5.6 g/dl (6.3-8.2); eGFR > 60.00
--- NOTE | 2025-08-05 09:03 | PHA.VAN.FU ---
Vancomycin Assessment / Plan
- Assessment
Renal Function: Stable
WBC's are: Trending Down
In the past 24 hrs, patient has been: Afebrile
- Assessment - Therapeutic Drug Monitoring
Random Level: 10.4 DRAWN ~20 HR AFTER PREVIOUS DOSE
- Dosing Plan
Adjust Regimen to: VANCO 1000MG Q12H
New Regimen Predicts: AUC (546), Peak (30.5), Trough (16.3)
- Monitoring Plan
No level(s) ordered at this time: CONSIDER LEVEL AT STEADY STATE
- Follow Up
Pharmacy will continue to follow.
Vancomycin Follow UP
- -
Patient Age: 80
Patient Sex: Male
Vancomycin Day #: 4
Indication: Skin And Soft Tissue
Requesting Provider: Maggi Clements
Pertinent Antimicrobial Allergies:
moxifloxacin
Height / Weight:
Height 5 ft 11 in
Actual Weight 94.943 kg
- Vital Signs / Lab Results
Temp Pulse Resp BP Pulse Ox
98.1 F 63 16 147/85 99
08/05/25 07:00 08/05/25 07:17 08/05/25 07:17 08/05/25 07:00 08/05/25 07:20
Lab Results - Hematology
08/02/25 08/02/25 08/03/25
16:51 18:39 06:46
WBC 40.8 H* 39.5 H 27.2 H
08/04/25 08/05/25
06:32 06:26
WBC 19.9 H 12.7 H
Lab Results - Chemistry
08/02/25 08/03/25 08/04/25
16:51 06:46 06:32
BUN 18 22 H 20
Creatinine 1.2 1.2 1.0
Estimated Creat Clear 52 63
Albumin 3.8 3.4 L
08/05/25
06:26
BUN 17
Creatinine 0.9
Estimated Creat Clear 70
Albumin 3.3 L
08/02/25 08/03/25 08/03/25
18:39 09:31 19:56
Lactic Acid 2.3 H 2.3 H 1.7
Microbiology Results
08/02/25 18:39 Blood Culture - Preliminary
Blood/Venous No Growth in 48 hours- Final report to follow
08/02/25 18:39 Blood Culture - Preliminary
Blood/Venous No Growth in 48 hours- Final report to follow
08/02/25 23:18 MRSA Screen - Final
Nose Staph aureus MRSA
Therapeutic Drug Monitoring
Random Vancomycin 10.4 ug/ml 08/05/25 06:26
[2025-08-05] MEDS: VANCOCIN 200 IV (09:40)
--- NOTE | 2025-08-05 10:31 | WOUNDNOTE ---
LLE (ANTERIOR MEDIAL)
--- NOTE | 2025-08-05 10:32 | WOUNDNOTE ---
L THIGH/KNEE (MEDIAL)
--- NOTE | 2025-08-05 10:38 | WOUNDNOTE ---
[facility] RN note: Patient admitted with LLE cellulitis. Patient lives with his .
See H&P for complete history.
PMH: HTN, asthma, sleep apnea, PMR, CHF, BPH, chronic LE edema (wears compression stockings at home), laminectomy, cardiac cath, spinal fusion, L4-5 laminectomy.
Wound Location and type/assessment: Patient admitted with: resolving cellulitis LLE. No drainage. No open areas currently. Patient reports LLE improved since admission. L medial lower thigh red raised area suspect location of L medial thigh simple
cyst reported on ultrasound. +Pedal pulses. Trace LLE edema.
Appetite: good.
Pressure redistribution devices in place: [employer] Accumax. Patient ambulates.
Plan: Patient applies petroleum jelly daily to LLE. He uses Aquaphor at home. Patient reports he's been elevating his legs frequently.
Discussed and confirmed order to knee high Tubigrip with Dr. Gaffney. Nas texted July Sneed via [place] text.
Updated care plan, will sign off, call if needed.
Recommend follow up at wound care center upon discharge if needed.
--- NOTE | 2025-08-05 10:40 | WOUNDNOTE ---
[facility] RN note: Patient admitted with LLE cellulitis. Patient lives with his .
See H&P for complete history.
PMH: HTN, asthma, sleep apnea, PMR, CHF, BPH, chronic LE edema (wears compression stockings at home), laminectomy, cardiac cath, spinal fusion, L4-5 laminectomy.
Wound Location and type/assessment: Patient admitted with: resolving cellulitis LLE. No drainage. No open areas currently. Patient reports LLE improved since admission. L medial lower thigh red raised area suspect location of L medial thigh simple
cyst reported on ultrasound. +Pedal pulses. Trace LLE edema.
Appetite: good.
Pressure redistribution devices in place: [employer] Accumax. Patient ambulates.
Plan: Patient applies petroleum jelly daily to LLE. He uses Aquaphor at home. Patient reports he's been elevating his legs frequently.
Discussed L medial lower thigh, LLE and showed Dr. Gaffney L lower thigh/LLE pictures and confirmed order for bilateral knee high Tubigrip with Dr. Gaffney. Nas texted July Sneed update.
Updated care plan, will sign off, call if needed.
Recommend follow up at wound care center upon discharge if needed.
[2025-08-05 11:55] VITALS: BP 150/88
--- NOTE | 2025-08-05 12:32 | CM ---
Addendum entered by Doris Thomas 08/05/25 13:36:
Per visiting nurse agency patient does not qualify for home care.
Original Note:
Chart reviewed and patient to return to home when stable, plan is to home with visiting nurses, options reviewed and patient has agreed to [facility], [facility] liaison contacted.
Plan; Home with [facility] when stable.
--- NOTE | 2025-08-05 12:41 | CON.ID ---
Consultation
-
Date/Time Consultation Requested: 08/05/25 12:21
Date/Time Consultation Performed: 08/05/25 12:42
Requesting Provider: Dr Gaffney
Performing Provider: Dr Zuniga
Reason for Consultation: left leg cellulitis, lower thigh cyst
Chief Complaint / Past History
Chief Complaint
weakness
History of Present Illness
Mr Avilez is an 80 year old male with history notable for CHF with preserved EF who presented to the ER on 08/02 for a 3 day history of weakness and fatigue. He has chronic lower extremity swelling and is on chronic diuretics and had increased
swelling and weeping from the legs. He has a simple cyst of the L lateral distal femur which occurred after vein graft harvest. His diuretic dose was uptitrated and the edema and swelling improved. Then the weakness and fatigue began as well as
chills not fever, no pain in the lower extremities. Then he was seen by his PCP was was concerned about bradycardia and hypotension with concern for left leg cellulitis, he was prescribed keflex and referred to the ER.
In the emergency department his temperature was 98 �C, blood pressure 116/60 with a pulse of 75 and was satting 97% on room air. He has a white count of 39.5 now 12.7, hemoglobin 15.7 platelet count of 334. His sodium was 131, K initially 5.1
creatinine 1.2 with a glucose of 134. Lactic acid was elevated at 2.3 then resolved to 1.7. BNP was also elevated 2900. Chest x-ray shows no acute infiltrates. Ultrasound is negative for DVT, a simple cyst was noted in the medial distal thigh
5.5 x 4.1 x 4.9 cm. MRSA screen was positive, blood cultures x2 were negative at 48 hours. He was treated with vancomycin and cefepime, the cefepime was stopped and vancomycin continued. There is a question as to whether the cyst could have
become infected as it has become red, warm and mildly tender - worse than the surrounding tissue and ID is consulted for assistance with management.
Past History
Additional Past Medical History:
Asthma, CHF (Preserved EF), GERD, HTN, Hypercholesterolemia and Other (Sleep apnea, PMR, BPH)
Additional Past Surgical History:
Laminectomy, status post cardiac cath, spinal fusion L4-L5
Allergy History:
moxifloxacin Allergy (Verified 08/02/25 16:38)
Unknown
oxycodone (From Percocet) Adverse Reaction (Verified 08/02/25 16:38)
Unknown
Medications Reviewed: Yes
Social History
Tobacco: Non-Smoker
Alcohol: None
Drug: None
Family History
Family History: Not Pertinent
Review of Systems
Review of Systems
A 12 point review of systems was completed and negative except as listed above
Vital Signs
Temp Pulse Resp BP Pulse Ox
98.5 F 68 16 150/88 97
08/05/25 11:55 08/05/25 11:55 08/05/25 11:55 08/05/25 11:55 08/05/25 11:55
Physical Exam
Physical Exam
Constitutional: No Acute Distress
Cardiovascular: Regular Rate and S1/S2; Negative Murmur or Rub
Pulmonary: Clear and Symmetric; Negative Wheezes, Rales or Rhonchi
Gastrointestinal: Soft, Non Tender, Non Distended and Normal Bowel Sounds
Skin: Warm, Dry and Rash (LLE mildly pink, cyst on the distal medial left femur quite erythematous, warm, mildly tender); Negative Jaundice
Lab / Diagnostic Study Results
08/05/25 06:26
08/05/25 06:26
Abs Immat Gran (auto) 0.1 10^3/uL (0-0.05) H 08/05/25 06:26
Absolute Neuts (auto) 8.9 10^3/uL (1.4-6.5) H 08/05/25 06:26
Absolute Lymphs (auto) 1.9 10^3/uL (1.2-3.4) 08/05/25 06:26
Absolute Monos (auto) 1.3 10^3/uL (0.1-0.6) H 08/05/25 06:26
Absolute Basos (auto) 0.1 10^3/uL (0-0.2) 08/05/25 06:26
Immature Gran % 0.9 % (0-0.5) H 08/05/25 06:26
Neutrophils % 70.2 % (42.2-75.2) 08/05/25 06:
Lymphocytes % 14.8 % (20.5-51.1) L 08/05/25 06:26
Monocytes % 9.8 % (1.7-9.3) H 08/05/25 06:26
Eosinophils % 3.7 % (0-6) 08/05/25 06:26
Basophils % 0.6 % (0-2) 08/05/25 06:26
Lactic Acid 1.7 mmol/L (0.7-2.0) 08/03/25 19:56
Microbiology Results
Micro:
08/02/25 18:39 Blood Culture - Preliminary
Blood/Venous No Growth in 48 hours- Final report to follow
08/02/25 18:39 Blood Culture - Preliminary
Blood/Venous No Growth in 48 hours- Final report to follow
08/02/25 23:18 MRSA Screen - Final
Nose Staph aureus MRSA
Assessment / Plan
Resolving Cellulitis
Possible Cyst Infection
- asked general surgery to assess if the cyst can be aspirated to help rule out abscess
- start cefazolin stop vancomycin/cefepime
- edema is now better controlled, start compression with tubigrips
Care Review
Plan reviewed with: Physician
[2025-08-05 13:02] LABS: Lyme Antibody Screen, EIA Negative (Negative)
--- NOTE | 2025-08-05 13:06 | VNURNOTE ---
Home Health Liaison met with patient and daughter at bedside to discuss [facility] nurse/therapy, visits, schedule and homebound status. Patient stated he does not plan on being home much after DC. He plans on resuming normal activities: going to
[employer], going out to lunch, going out to coffee and seeing friends. Would not meet homebound criteria. JESUS George notified. No referral placed.
[2025-08-05] MEDS: ANCEF 10 IV ×2 (14:30→21:42)
--- NOTE | 2025-08-05 14:46 | W.PN.HOSP.TC ---
Today's Communication/Plan
-
ID eval requested
leg elevation/tubigrip
abd de-escalated to ancef
Assessment / Plan
Assessment / Plan
LLE cellulitis
- Significant leukocytosis of 41k at admission, trended down.
- Blood cultures NGTD
-DVT negative on ultrasound
- MRSA screen positive
- Was maintained on vancomycin and cefepime, de-escalated to Ancef
- Lower extremity compression stockings and leg elevation recommended
- ID help appreciated
Left lower thigh simple cyst
-Developed postoperatively from venous graft site
-Ultrasound of lower extremity showed simple cyst
-Question of possible localized infection the cyst as well, general surgery help asked if can have bedside aspiration
Asthma
-no signs of acute exacerbation, chest x-ray is clear
- Continue his home inhalers
Mild hyperkalemia
-improved with lokelma
Hyponatremia
-Resolved
History of PMR
-Patient currently being tapered off of prednisone, currently on 4 mg daily continue
Troponin elevation
h/o CAD/stents
- Trop max of 0.049, trended normal
- Suspected nonischemic myocardial injury related
- cards help appreciated
Elevated proBNP
- Maintained on Lasix 40 mg daily
- Cardiology help appreciated
- Follow-up echocardiogram report
DVT prophylaxis�Lovenox subcu
CODE STATUS�full code
Anticipated Discharge: Within 24 hours
Subjective/Interval History
-
Date of Service: August 05, 2025
no new complains overnight
left leg erythema improving
Objective Data
-
Labs:
Laboratory Results
08/05/25
06:26
WBC 12.7 H
Hgb 15.2
Hct 44.3
Plt Count 245
Sodium 136
Potassium 4.7
Chloride 107
Carbon Dioxide 21 L
BUN 17
Creatinine 0.9
Glucose 91
Calcium 8.5
Total Bilirubin 0.7
AST 20
ALT 18
Alkaline Phosphatase 52
Vital Signs:
Vital Signs
Temp Pulse Resp BP Pulse Ox
98.5 F 68 16 150/88 97
08/05/25 11:55 08/05/25 11:55 08/05/25 11:55 08/05/25 11:55 08/05/25 11:55
I&O
08/04/25 08/05/25 08/06/25
06:59 06:59 06:59
Intake Total 1628 / 1628 960 / 960
Balance 1628 / 1628 960 / 960
Review of Systems
-
Respiratory: Reports No Symptoms
Cardiac: Reports No Symptoms
Abdomen/GI: Reports No Symptoms
Physical Exam
-
General: No Apparent Distress and Comfortable
HEENT: Negative Oxygen
Respiratory: Clear to Auscultation
Cardiac: Regular Rhythm and S1/S2; Negative Murmur or Rub
Musculoskeletal: Edema, Left Lower Extrem and Other (Left lower thigh cyst - non tender, fluctuant)
Neuro: Awake, Alert, Oriented, No Motor Deficits and Nonfocal/Grossly Intact
Psych: Calm
[2025-08-05] MEDS: LOVENOX 40 MG SC (15:22)
[2025-08-05 15:43] VITALS: BP 129/67
--- NOTE | 2025-08-05 16:14 | CON.GS ---
Addendum entered and electronically signed by Miguel Phillip MD 08/05/25 19:37:
I saw and examined the patient independently.
The Director Medical Science's note was reviewed and I agree with the note, assessment and plan except where noted below.
Comment: This is an 80-year-old male with significant cardiac history who presents with a large cyst at the site of one of his left lower extremity venous graft harvesting site around the knee. He said that it has been swollen for some time but the
erythema over it is new. Denies fevers chills or altered mental status. Ultrasound reviewed, simple cyst noted 5 cm in diameter.
Given his location and chronicity, would appreciate getting a CT scan with IV contrast to ensure there is no vascular component of this as that might make a bedside incision and drainage much more challenging.
Continue antibiotics.
Surgical plans pending CT scan results.
Hold therapeutic anticoagulation as able.
I spent 60 minutes in total for the care of this patient today including direct patient care and counseling, reviewing labs, imaging, coordination of care, as well as documentation.
Original Note:
Consultation
-
Date/Time Consultation Performed: 08/05/25 1515
Requesting Provider: Efrain
Reason for Consultation: evaluation of cyst
Medical History
-
Chief Complaint: erythema
History of Present Illness:
Mr Avilez is an 80 yo male with a h/o HFpEF, CRISTINO, and CABG with venous graft harvested from his LLE in 2021 with subsequent development of a rather large cyst at the graft site to the left inner thigh who presented on 08/02 with fatigue with LLE
erythema noted from the foot to just below the knee. He subsequently noticed that erythema was present to the skin overlying the cyst as well. Erythema has certainly improved to the lower portion of his leg from prior markings but is still present
overlying the cyst and on the foot ascending upwards toward the calf. The cyst is soft and nontender but quite large (approx tennis ball size). He does not believe it has grown in size of late and has remained about the same size for the past few
years.
Past Medical History
Past Medical History: CAD, CHF, GERD, HTN, Hypercholesterolemia and Other (CRISTINO)
Past Surgical History: Cardiac (Stent 2008, CABG 2021) and Orthopedic (spinal fusion, laminectomy)
Social History
Tobacco: Non-Smoker
Personal:
Living: With Family
Family History
Family History: Reviewed & Not Pertinent
Allergies / Home Medications
Allergy/AdvReac Type Severity Reaction Status Date / Time
moxifloxacin Allergy Unknown Verified 08/02/25 16:38
oxycodone (From Percocet) AdvReac Unknown Verified 08/02/25 16:38
�Medication �Instructions �Recorded �Confirmed �Type
ascorbic acid (vitamin C) 500 mg 500 mg PO DAILY@119908/02/25 08/02/25 History
tablet (Vitamin C)
aspirin 81 mg tablet,delayed 81 mg PO HS 08/02/25 08/02/25 History
release
budesonide-formoterol HFA 160 2 inh inhalation R BID 08/02/25 08/02/25 History
mcg-4.5 mcg/actuation aerosol
inhaler (Breyna)
coQ10 (ubiquinol) 100 mg capsule 100 mg PO DAILY@1200 08/02/25 08/02/25 History
dupilumab 300 mg/2 mL subcutaneous 300 mg SC Q2W 08/02/25 08/02/25 History
syringe (Dupixent)
esomeprazole magnesium 40 mg 40 mg PO DAILY 08/02/25 08/02/25 History
capsule,delayed release (Nexium)
famotidine 20 mg tablet (Pepcid) 20 mg PO HS 08/02/25 08/02/25 History
finasteride 5 mg tablet 5 mg PO DAILY 08/02/25 08/02/25 History
furosemide 20 mg tablet (Lasix) 20 mg PO QPM 08/02/25 08/02/25 History
furosemide 40 mg tablet (Lasix) 40 mg PO DAILY 08/02/25 08/02/25 History
gabapentin 100 mg capsule 200 mg PO HS 08/02/25 08/02/25 History
losartan 100 mg tablet 100 mg PO DAILY 08/02/25 08/02/25 History
magnesium oxide 200 mg PO DAILY 08/02/25 08/02/25 History
montelukast 10 mg tablet 10 mg PO DAILY 08/02/25 08/02/25 History
(Singulair)
omega 5-gpr-paz-fish oil 1,000 mg 1 cap PO DAILY@1200 08/02/25 08/02/25 History
(120 mg-180 mg) capsule (Fish Oil)
prednisone 1 mg tablet 4 mg PO DAILY 08/02/25 08/02/25 History
rosuvastatin 20 mg tablet (Crestor) 20 mg PO DAILY 08/02/25 08/02/25 History
tramadol 50 mg tablet 50 mg PO HS 08/02/25 08/02/25 History
Review of Systems
-
History Source: Patient and Family
All other systems: Negative unless noted
A 10 point review of systems was completed, and was negative except as per HPI.
Physical Exam
Vital Signs
Temp Pulse Resp BP Pulse Ox
98.2 F 73 16 129/67 95
08/05/25 15:43 08/05/25 15:43 08/05/25 15:43 08/05/25 15:43 08/05/25 15:43
08/04/25 08/05/25 08/06/25
06:59 06:59 06:59
Actual Weight 94.943 kg
Body Mass Index (BMI) 29.2
Lab Results
08/05/25 06:26
08/05/25 06:26
WBC 12.7 10^3/uL (4.8-10.8) H 08/05/25 06:26
Hgb 15.2 g/dL (13.0-18.0) 08/05/25 06:26
Hct 44.3 % (39.0-52.0) 08/05/25 06:
Plt Count 245 10^3/uL (130-400) 08/05/25 06:26
Abs Immat Gran (auto) 0.1 10^3/uL (0-0.05) H 08/05/25 06:26
Neutrophils % 70.2 % (42.2-75.2) 08/05/25 06:
Physical Exam
General: Well Developed and Well Nourished
HEENT: Normocephalic and Moist Mucous Membranes
Respiratory: Non Labored Respirations
GI: Soft and Non Tender
Skin: Warm and Other (Ascending erythema from foot to below knee (improved from prior markings), round cyst approx 5x5cm to inner left thigh with overlying erythema, nontender but warm)
Neuro: Awake, Alert and AO x 3
Psych: Calm
Data Reviewed
-
Ultrasound: Image Personally Visualized and interpreted, Report Reviewed by me, Discussed with Physician, Discussed with Nurse, Discussed with Patient and Discussed with Family
Labs: Labs Reviewed by me, Discussed with Physician, Discussed with Patient and Discussed with Family
Old Records: Reviewed
Assessment / Plan
-
Mr Avilez is an 80 yo male with a h/o HFpEF, CRISTINO, and CABG with venous graft harvested from his LLE in 2021 with subsequent development of a rather large cyst at the graft site to the left inner thigh who presented on 08/02 with fatigue with LLE
erythema noted from the foot to just below the knee. He subsequently noticed that erythema was present to the skin overlying the cyst as well. Afebrile. VSS. Ultrasound is negative for DVT, a simple cyst was noted in the medial distal thigh 5.5 x
4.1 x 4.9 cm. MRSA screen was positive, blood cultures x2 were negative at 48 hours. Initial WBC of 40.8, now significantly improved to 12.7. Consult requested by ID to evaluated cyst.
Plan:
Would check CT of the LLE with IV contrast
ABX as per ID
Surgical recommendations pending additional imaging
[2025-08-05] MEDS: PEPCID 20 MG PO (21:41)
[2025-08-05] MEDS: NEURONTIN 200 MG PO (21:41)
[2025-08-05] MEDS: ASPIR LOW (ENTERIC COATED) 81 MG PO (21:41)
[2025-08-05] MEDS: ULTRAM 50 MG PO (21:41)
[2025-08-05 23:16] VITALS: BP 144/76
[2025-08-06] MEDS: ANCEF 10 IV ×2 (06:29→13:31)
--- NOTE | 2025-08-06 07:30 | W.PN.SURGUPD ---
Surgical Update
Surgical Update
Chart reviewed. No changes from previous surgical evaluation and recommendation. Awaiting CT scan imaging. Will continue to follow.
[2025-08-06 07:54] VITALS: BP 149/85
[2025-08-06] MEDS: SYMBICORT 160/4.5 MCG INHALER INH (08:16)
[2025-08-06] MEDS: CRESTOR 20 MG PO (09:05)
[2025-08-06] MEDS: DELTASONE 4 MG PO (09:05)
[2025-08-06] MEDS: COZAAR 100 MG PO (09:06)
[2025-08-06] MEDS: LASIX 40 MG PO (09:06)
[2025-08-06] MEDS: PROTONIX 40 MG PO (09:06)
[2025-08-06] MEDS: PROSCAR 5 MG PO (09:06)
[2025-08-06] MEDS: SINGULAIR 10 MG PO (09:07)
[2025-08-06] MEDS: MAGNESIUM OXIDE 200 MG PO (09:29)
[2025-08-06 09:45] LABS: Blood Urea Nitrogen 14 mg/dl (9-20); Calcium 9.1 mg/dl (8.4-10.2); Carbon Dioxide 27 mmol/L (22-30); Chloride 105 mmol/L (98-107); Estimated Creatinine Clearance 70 ml/min; Glucose 86 mg/dl (70-99); Potassium 4.3 mmol/L (3.5-5.1); Sodium 137 mmol/L (135-145); eGFR > 60.00
[2025-08-06 10:48] LABS: Hematocrit 47.3 % (39.0-52.0); Hemoglobin 15.7 g/dL (13.0-18.0); Mean Corp Hgb Conc. 33.2 g/dL (33.0-37.0); Mean Corpuscular Volume 86.6 fL (80.0-94.0); Platelet Count 316 10^3/uL (130-400); Red Cell Dist. Width 14.1 % (11.5-14.5)
--- NOTE | 2025-08-06 10:56 | W.PN.ID1 ---
Date of Service
Date of Service: August 06, 2025
Today's Communication
- CT completed, overall I favor drainage of the cyst, if drainage is not undertaken then could switch to cephalexin to complete a 10 day total course 08/02-08/11
Assessment / Plan
Resolving Cellulitis - nonpurulent
Possible Cyst Infection
- note positive MRSA screen however, cellulitis has been nonpurulent
- blood cultures no growth at 72 hours
- CT completed, overall I favor drainage of the cyst, if drainage is not undertaken then could switch to cephalexin to complete a 10 day total course 08/02-08/11
- appreciate general surgery input
- c/w cefazolin pending surgery input
- edema is now better controlled, start compression with tubigrips
Chief Complaint
-: Other (abscess, cellulitis)
Subjective / Review of Systems
afebrile
bp stable
Vital Signs / Physical Exam
Vital Signs
Vital Signs
Temp Pulse Resp BP Pulse Ox
97.8 F 70 18 149/85 98
08/06/25 07:54 08/06/25 07:54 08/06/25 07:54 08/06/25 07:54 08/06/25 07:54
Physical Exam
Constitutional: No Acute Distress
Cardiovascular: Regular Rate and S1/S2; Negative Murmur or Rub
Pulmonary: Clear and Symmetric; Negative Wheezes or Rales
Gastrointestinal: Soft, Non Tender, Non Distended and Normal Bowel Sounds
Skin: Warm and Dry; Negative Rash or Jaundice
Wound: Other (cyst is less red and warm today, more similar to surrounding tissue)
Objective Data
Lab Data
Lab Results
08/06/25 09:18
08/06/25 09:18
Estimated Creat Clear 70 ml/min 08/06/25 09:18
Lactic Acid 1.7 mmol/L (0.7-2.0) 08/03/25 19:56
Total Bilirubin 0.7 mg/dl (0.2-1.3) 08/05/25 06:26
AST 20 U/L (17-59) 08/05/25 06:26
ALT 18 U/L (0-50) 08/05/25 06:26
Alkaline Phosphatase 52 U/L (38-126) 08/05/25 06:26
Most recent labs reviewed.
Micro Results:
08/02/25 18:39 Blood Culture - Preliminary
Blood/Venous No Growth in 72 hours- Final report to follow
08/02/25 18:39 Blood Culture - Preliminary
Blood/Venous No Growth in 72 hours- Final report to follow
08/02/25 23:18 MRSA Screen - Final
Nose Staph aureus MRSA
--- NOTE | 2025-08-06 13:01 | W.PN.HOSP.TC ---
Today's Communication/Plan
-
see note
likely discharge later today
Assessment / Plan
Assessment / Plan
LLE cellulitis
- Significant leukocytosis of 41k at admission, trended down.
- Blood cultures NGTD
- DVT negative on ultrasound
- MRSA screen positive
- Was maintained on vancomycin and cefepime, de-escalated to Ancef
- Lower extremity compression stockings and leg elevation recommended
- Discussed with ID and patient would benefit with Keflex 10 days course at discharge.
Left lower thigh simple cyst
-Developed postoperatively from venous graft site
-Ultrasound of lower extremity showed simple cyst
-Lower extremity CT scan done, await general surgery input for need of aspiration
Asthma
-no signs of acute exacerbation, chest x-ray is clear
- Continue his home inhalers
Mild hyperkalemia
-improved with lokelma
Hyponatremia
-Resolved
History of PMR
-Patient currently being tapered off of prednisone, currently on 4 mg daily continue
Troponin elevation
h/o CAD/stents
- Trop max of 0.049, trended normal
- Suspected nonischemic myocardial injury related
- cards help appreciated
Elevated proBNP
- Maintained on Lasix 40 mg daily
- Cardiology help appreciated
- Follow-up echocardiogram report
DVT prophylaxis�Lovenox subcu
CODE STATUS�full code
Anticipated Discharge: Today
Subjective/Interval History
-
Date of Service: August 06, 2025
no new issues overnight
Objective Data
-
Labs:
Laboratory Results
08/06/25
09:18
WBC 12.5 H
Hgb 15.7
Hct 47.3
Plt Count 316 D
Sodium 137
Potassium 4.3
Chloride 105
Carbon Dioxide 27
BUN 14
Creatinine 0.9
Glucose 86
Calcium 9.1
Vital Signs:
Vital Signs
Temp Pulse Resp BP Pulse Ox
97.8 F 70 18 149/85 98
08/06/25 07:54 08/06/25 07:54 08/06/25 07:54 08/06/25 07:54 08/06/25 07:54
I&O
08/05/25 08/06/25 08/07/25
06:59 06:59 06:59
Intake Total 960 / 960 660 / 660
Balance 960 / 960 660 / 660
Review of Systems
-
Respiratory: Reports No Symptoms
Cardiac: Reports No Symptoms
Abdomen/GI: Reports No Symptoms
Physical Exam
-
General: No Apparent Distress and Comfortable
HEENT: Negative Oxygen
Respiratory: Clear to Auscultation
Cardiac: Regular Rhythm and S1/S2; Negative Murmur or Rub
Musculoskeletal: Edema, Left Lower Extrem and Other (Left lower thigh cyst - non tender, fluctuant)
Neuro: Awake, Alert, Oriented, No Motor Deficits and Nonfocal/Grossly Intact
Psych: Calm
[2025-08-06 15:28] VITALS: BP 144/84
--- NOTE | 2025-08-06 15:52 | CM ---
Home today no needs, IMM completed.
Plan; Home no needs.
== END 2025-08-06 16:24 | disposition home or self-care (01) | DRG 603 ==
LOC: 4 WEST ACU 22:08
PROVIDERS: Internal Medicine; ADMITTING PHYSICIAN Internal Medicine; ATTENDING PHYSICIAN Hospitalist; CONSULT PHYSICIAN Student in an Organized Health Care Education/Training Program; CONSULT PHYSICIAN Surgery; EMERGENCY PHYSICIAN Emergency Medicine; FAMILY PHYSICIAN Family Medicine
DX: L03.116 Cellulitis of left lower limb (principal); E87.1 Hypo-osmolality and hyponatremia; I5A Non-ischemic myocardial injury (non-traumatic); I50.32 Chronic diastolic (congestive) heart failure; J45.909 Unspecified asthma, uncomplicated; E87.5 Hyperkalemia; I25.10 Atherosclerotic heart disease of native coronary artery without angina pectoris; I11.0 Hypertensive heart disease with heart failure; K21.9 Gastro-esophageal reflux disease without esophagitis; N40.0 Benign prostatic hyperplasia without lower urinary tract symptoms; Z98.1 Arthrodesis status; Z88.1 Allergy status to other antibiotic agents; Z79.899 Other long term (current) drug therapy; Z79.82 Long term (current) use of aspirin; G47.33 Obstructive sleep apnea (adult) (pediatric); E78.00 Pure hypercholesterolemia, unspecified; I49.3 Ventricular premature depolarization; I87.2 Venous insufficiency (chronic) (peripheral); Z79.52 Long term (current) use of systemic steroids; Z95.1 Presence of aortocoronary bypass graft; Z95.5 Presence of coronary angioplasty implant and graft; Z11.52 Encounter for screening for COVID-19
CPT/HCPCS: 71046; 73701; 80048; 80053; 80202; 83605; 83735; 83880; 84484; 85004; 85025; 85027; 86618; 87040; 87070; 87147; 87811; 93005; 93306; 93971; 94640; 94660; 96365; 96367; 99285; Q9967

== ENCOUNTER 2025-10-21 14:14 | Emergency (ER) | payer MEDICARE, BC, SELFPAY ==
[2025-10-21 14:18] VITALS: BP 163/74
[2025-10-21 15:17] LABS: Hematocrit 45.9 % (39.0-52.0); Hemoglobin 15.6 g/dL (13.0-18.0); Mean Corp Hgb Conc. 34.0 g/dL (33.0-37.0); Mean Corpuscular Volume 84.1 fL (80.0-94.0); Nucleated Red Blood Cells % 0 % (-); Platelet Count 298 10^3/uL (130-400); Red Cell Dist. Width 15.6 % (11.5-14.5)
[2025-10-21 15:19] LABS: INR 1.09; PT 14.3 Sec (11.4-14.6)
[2025-10-21 15:41] LABS: ALT (SGPT) 136 U/L (0-50); AST (SGOT) 320 U/L (17-59); Albumin 3.9 g/dl (3.5-5.0); Alkaline Phosphatase 87 U/L (38-126); Blood Urea Nitrogen 18 mg/dl (9-20); Calcium 8.8 mg/dl (8.4-10.2); Carbon Dioxide 22 mmol/L (22-30); Chloride 103 mmol/L (98-107); Glucose 107 mg/dl (70-99); Lipase 163 U/L (23-300); Potassium 3.9 mmol/L (3.5-5.1); Sodium 133 mmol/L (135-145); Total Protein 6.3 g/dl (6.3-8.2); eGFR > 60.00
--- NOTE | 2025-10-21 15:47 | ED.GENMED ---
History of Present Illness
<FIORDALIZA Hardwick - Last Filed: 10/21/25 21:02>
General
Chief Complaint: Chest Pain
Source: patient
Exam Limitations: none
Time Seen by Provider: 10/21/25 15:40
Nursing documentation reviewed up to this point in time: agreed with
History of Present Illness
History of Present Illness:
Patient is AN 80-year-old male past medical history of polymyalgia rheumatica on daily steroids, stents/CABG(2022) hypertension hyperlipidemia reflux presenting for evaluation. Patient reports around 12:30 PM he started with upper abdominal pain
that radiated to his back. He did break out into a sweat. He reports this felt similar to when he had his cardiac issues in the past. He took Nexium and an acid without relief. He had old nitroglycerin at home and did take 3 of them without
relief. He did take 1 full aspirin today. He reports pain is currently improved and minimally there. He is followed by [facility] cardiology.
He has chronic lower extremity swelling from venous insufficiency and reports swelling is there however better than normal.
Past History
<FIORDALIZA Hardwick - Last Filed: 10/21/25 21:02>
Past History
ED Past Medical History: CAD, GERD and Other (Pharyngolaryngeal reflux)
ED Past Surgical History: Appendectomy, Cardiac (TCA with stent), Orthopedic (Lumbar laminectomy/fusion; carpal tunnel release right hand, knee arthroscopy) and Other (Sinus surgery)
Social History
Tobacco: Non-smoker
Alcohol: Other
Drug: None
Personal:
Living: with family
Employment: Retired
Family History
Family History: Other (Noncontributory)
Phy Exam
<FIORDALIZA Hardwick - Last Filed: 10/21/25 21:02>
General Physical Exam
General Presentation: no apparent distress
General age: appears stated age
General Skin: warm and dry
General Habitus: normal
General Mental: alert
General Hydration: appears well hydrated
Cardiovascular Exam
Cardiovascular Exam: regular rate/rhythm, no murmur and normal peripheral pulses
Pulmonary Exam
Pulmonary Exam: lungs clear and no respiratory distress
Neurological Exam
Neurological Exam: alert and oriented x3
Musculoskeletal Exam
Musculoskeletal Exam: full ROM and other (+ l/e swelling left greater than right )
Skin Exam
Skin Exam: normal color and warm/dry
Psychiatric Exam
Psychiatric Exam: normal mood/affect
Scores
<FIORDALIZA Hardwick - Last Filed: 10/21/25 21:02>
Heart Score for Chest Pain Patients
STEMI patient?: Not applicable
Course
<FIORDALIZA Hardwick - Last Filed: 10/21/25 21:02>
Orders/Labs/Results
Orders:
Orders
10/21/25 14:15
Electrocardiogram (*1) Urgent
Reason for Study: Chest Pain
EKG- Treatment ONCE
10/21/25 14:38
Complete Blood Count/With Diff Urgent
Comprehensive Metabolic Panel Urgent
Lipase Urgent
Prothrombin Time Urgent
10/21/25 15:47
Cardiac Monitoring- Treatment ONCE
IV Insert/Care/Rem.- Treatment PRN
10/21/25 15:49
US Abdomen Complete/Upper Urgent
Comment:
Reason For Exam: upper abd pain
10/21/25 16:13
Troponin I Urgent
10/21/25 18:04
EKG- Treatment ONCE
10/21/25 18:55
Troponin I Urgent
10/21/25 19:00
Electrocardiogram (*1) Urgent
Reason for Study: Chest Pain
Abnormal Lab Results
10/21/25
14:38
WBC 20.3 H 10^3/uL
(4.8-10.8)
RDW 15.6 H %
(11.5-14.5)
Abs Immat Gran (auto) 0.2 H 10^3/uL
(0-0.05)
Absolute Neuts (auto) 16.9 H 10^3/uL
(1.4-6.5)
Absolute Monos (auto) 1.4 H 10^3/uL
(0.1-0.6)
Immature Gran % 1.1 H %
(0-0.5)
Neutrophils % 83.0 H %
(42.2-75.2)
Lymphocytes % 8.4 L %
(20.5-51.1)
Sodium 133 L mmol/L
(135-145)
Glucose 107 H mg/dl
(70-99)
AST 320 H U/L
(17-59)
ALT 136 H U/L
(0-50)
10/21/25 14:38
10/21/25 14:38
Vital Signs
Initial and Last Documented VS:
Initial Vital Signs
Temp Pulse Resp BP Pulse Ox
98.6 F 74 18 163/74 99
10/21/25 14:18 10/21/25 14:18 10/21/25 14:18 10/21/25 14:18 10/21/25 14:18
Last Documented Vital Signs
Temp Pulse Resp BP Pulse Ox
98.6 F 73 15 148/68 97
10/21/25 14:18 10/21/25 18:45 10/21/25 18:45 10/21/25 17:08 10/21/25 17:15
[employer] consulted with Physician
[employer] consulted with physician?: Yes
Name of Physician Consulted: [place]
<Mary Gamino MD - Last Filed: 10/21/25 20:57>
Orders/Labs/Results
Orders:
Orders
10/21/25 14:15
Electrocardiogram (*1) Urgent
Reason for Study: Chest Pain
EKG- Treatment ONCE
10/21/25 14:38
Complete Blood Count/With Diff Urgent
Comprehensive Metabolic Panel Urgent
Lipase Urgent
Prothrombin Time Urgent
10/21/25 15:47
Cardiac Monitoring- Treatment ONCE
IV Insert/Care/Rem.- Treatment PRN
10/21/25 15:49
US Abdomen Complete/Upper Urgent
Comment:
Reason For Exam: upper abd pain
10/21/25 16:13
Troponin I Urgent
10/21/25 18:04
EKG- Treatment ONCE
10/21/25 18:55
Troponin I Urgent
10/21/25 19:00
Electrocardiogram (*1) Urgent
Reason for Study: Chest Pain
Abnormal Lab Results
10/21/25
14:38
WBC 20.3 H 10^3/uL
(4.8-10.8)
RDW 15.6 H %
(11.5-14.5)
Abs Immat Gran (auto) 0.2 H 10^3/uL
(0-0.05)
Absolute Neuts (auto) 16.9 H 10^3/uL
(1.4-6.5)
Absolute Monos (auto) 1.4 H 10^3/uL
(0.1-0.6)
Immature Gran % 1.1 H %
(0-0.5)
Neutrophils % 83.0 H %
(42.2-75.2)
Lymphocytes % 8.4 L %
(20.5-51.1)
Sodium 133 L mmol/L
(135-145)
Glucose 107 H mg/dl
(70-99)
AST 320 H U/L
(17-59)
ALT 136 H U/L
(0-50)
10/21/25 14:38
10/21/25 14:38
Vital Signs
Initial and Last Documented VS:
Initial Vital Signs
Temp Pulse Resp BP Pulse Ox
98.6 F 74 18 163/74 99
10/21/25 14:18 10/21/25 14:18 10/21/25 14:18 10/21/25 14:18 10/21/25 14:18
Last Documented Vital Signs
Temp Pulse Resp BP Pulse Ox
98.6 F 73 15 148/68 97
10/21/25 14:18 10/21/25 18:45 10/21/25 18:45 10/21/25 17:08 10/21/25 17:15
<FIORDALIZA Hardwick - Last Filed: 10/21/25 21:02>
MDM/Problems Addressed
Differential Diagnosis Includes:
not limited to cholecystitis, gastritis, ACS no acute
MDM/Problems Addressed:
As documented patient is an 80-year-old male with history of CAD ,bypass PMR on chronic steroids presents with upper abd pain swelling prior to arrival. He did feel that symptoms were similar to when he needed his bypass however patient admitted
to having a lot of gas here in did pass gas and had a bowel movement here in the ER and feels much better. He was kept for 2 cardiac troponins and both within normal limits. No acute findings on EKG patient has had elevated troponins in the past.
Patient's white blood cell count is high however he is on chronic steroids .LFTs minimally elevated and therefore abdominal ultrasound done which shows cholelithiasis without any acute evidence of cholecystitis.
pt has been pain free in no acute distress here in the ED .
Case d/c w/ ED physician who valuated patient.
will DC with outpatient cardiology hotline
Chronic conditions affecting care:
CABG
<FIORDALIZA Hardwick - Last Filed: 10/21/25 21:02>
*Radiology
Radiology exam reviewed: radiology read reviewed (Gallstones with no evidence for acute cholecystitis or biliary ductal dilatation)
*Pulse Oximetry
SaO2: 99
Oxygen Mode of Delivery: Room air
Patient hypoxic: no
*Critical Care Note
Total Time (30-74mins, 75-104mins- exclusive of procedures): Not Applicable
Data Reviewed
Review of Other/Old Records Reveals: Discharge Summary and Other (Echo from July 2025 normal LV with low normal systolic function: LVEF is 50-55% normal RV size and function no significant valve disease)
Source: patient
ED Attending Note
<FIORDALIZA Hardwick - Last Filed: 10/21/25 21:02>
-
Portions of this chart may have been created with voice recognition software.� Occasional wrong word or��sound alike� substitutions may have occurred due to the inherent limitations of voice recognition software.
<Mary Gamino MD - Last Filed: 10/21/25 20:57>
ED Attending Note
Patient seen and examined by attending physician: Yes
I performed the substantive portion of visit, reviewed & personally made and approve the management plan that is documented in note by myself or [place].: Yes
ED Attending Note:
-year-old male with complaints of epigastric discomfort that felt like burning earlier today, on arrival still had symptoms, then went to the bathroom and had a bowel movement. (Was feeling constipated), and now has been sleeping ever since. He
denies chest pain, dyspnea, back pain, diaphoresis, vomiting, fever, chills. Patient recently completed steroids and suspects symptoms to steroids. Patient chronically has black stools related issues Pepto, denies bright red blood per rectum.
Troponin x 2 stable here, ECG without acute ischemia, highly doubt ACS as cause of symptoms. Vital stable, will be discharged with follow-up and he has arranged.
Discharge Plan
Departure
Patient Disposition: Home (Routine Discharge)
Date of Disposition: 10/21/25
Time of Disposition: 20:53
Patient with high blood pressure during this ER visit?: Yes
Condition: Fair
Covid-19: Not Applicable
Discharge Problem:
Chest pain
Instructions: Chest Pain NON-DHP [employer] Man Follow Up, BLOOD PRESSURE
Prescriptions:
No Action
furosemide [Lasix] 40 mg Tablet
40 mg PO DAILY
aspirin 81 mg Tablet,Delayed Release (Dr/Ec)
81 mg PO HS
tramadol 50 mg Tablet
50 mg PO HS
famotidine [Pepcid] 20 mg Tablet
20 mg PO HS
ascorbic acid (vitamin C) [Vitamin C] 500 mg Tablet
500 mg PO DAILY@1200
prednisone 1 mg Tablet
4 mg PO DAILY
esomeprazole magnesium [Nexium] 40 mg Capsule,Delayed Release(Dr/Ec)
40 mg PO DAILY
montelukast [Singulair] 10 mg Tablet
10 mg PO DAILY
furosemide [Lasix] 20 mg Tablet
20 mg PO QPM
gabapentin 100 mg Capsule
200 mg PO HS
losartan 100 mg Tablet
100 mg PO DAILY
finasteride 5 mg Tablet
5 mg PO DAILY
rosuvastatin [Crestor] 20 mg Tablet
20 mg PO DAILY
budesonide-formoterol [Breyna] 160-4.5 mcg/actuation Hfa Aerosol Inhaler
2 inh INHALATION R BID
omega [id number]-vyi-pvv-fish oil [Fish Oil] 1,000 (120-180) mg Capsule
1 cap PO DAILY@1200
coQ10 (ubiquinol) 100 mg Capsule
100 mg PO DAILY@1200
Dupixent Syringe 300 mg/2 mL Syringe
300 mg SC Q2W
magnesium oxide 200 mg magnesium Tablet
200 mg PO DAILY
cephalexin 500 mg capsule
500 mg PO QID 10 Days Qty: 40 0RF
Referrals:
Yash Philippe MD [Family Provider, Family Practice]
Activity Restrictions/Additional Instructions:
Please follow-up closely with your bsa/aml compliance officer for reevaluation of symptoms. Call to make an appointment to be evaluated in the next several days.
Return with any worsening of symptoms
Interventions
Interventions:
*General Assessment Last Done: 10/21/25 14:18
*Neglect/Abuse Screening Last Done: 10/21/25 14:18
ED- Cardiac Assessment Last Done: 10/21/25 17:00
Discharge Date and Time
Print Language: CROATIAN
[2025-10-21 16:00] VITALS: BP 126/62
[2025-10-21 16:44] LABS: Troponin I 0.028 ng/ml
[2025-10-21 17:08] VITALS: BP 148/68
[2025-10-21 19:36] LABS: Troponin I 0.032 ng/ml
== END 2025-10-21 21:11 | disposition home or self-care (01) ==
LOC: EMR 14:14
PROVIDERS: Emergency Medicine; Nurse Practitioner; EMERGENCY PHYSICIAN Emergency Medicine; FAMILY PHYSICIAN Family Medicine
DX: R07.89 Other chest pain (principal); M35.3 Polymyalgia rheumatica; I10 Essential (primary) hypertension; E78.00 Pure hypercholesterolemia, unspecified; K21.9 Gastro-esophageal reflux disease without esophagitis; I25.10 Atherosclerotic heart disease of native coronary artery without angina pectoris; I87.2 Venous insufficiency (chronic) (peripheral); Z79.52 Long term (current) use of systemic steroids; Z82.49 Family history of ischemic heart disease and other diseases of the circulatory system; Z90.49 Acquired absence of other specified parts of digestive tract; Z95.1 Presence of aortocoronary bypass graft; Z95.5 Presence of coronary angioplasty implant and graft
CPT/HCPCS: 99284; 76700; 80053; 83690; 84484; 85025; 85610; 93005